=== PATIENT | female | born 1975 | race Caucasian/White ===

== ENCOUNTER 2020-06-27 09:57 | Outpatient (REF) | payer BC, SELFPAY ==
[2020-06-27 12:20] LABS: MANUAL DIFF FLAG NO
[2020-06-27 12:33] LABS: Basophils Percent Auto 0.2 % (0-2); Eosinophils Absolute Auto 0.2 X10*3/uL (0.0-0.4); Eosinophils Percent Auto 2.7 % (0-4); Hematocrit 37.6 % (37-47); Hemoglobin 11.9 g/dl (12.0-16.0); Imm Gran Abs Auto 0.05 X10*3/uL (0.00-0.03); Imm Gran Pct Auto 0.6 % (0.0-0.4); Lymphocytes Absolute Auto 2.5 X10*3/uL (1.2-4.9); Lymphocytes Percent Auto 29.3 % (20-40); Mean Corpuscular HGB Conc 31.6 g/dl (31.0-35.0); Mean Corpuscular Hemoglobin 24.6 pg (27.0-33.0); Mean Corpuscular Volume 77.7 fL (80-98); Mean Platelet Volume 9.9 fL (9.4-12.3); Monocytes Absolute Auto 0.7 X10*3/uL (0.1-1.2); Monocytes Percent Auto 7.9 % (2-11); Neutrophils Absolute Auto 5.1 X10*3/uL (2.0-8.3); Neutrophils Percent Auto 59.3 % (45-73); Platelet Count 230 X10*3/uL (160-400); Red Blood Count 4.84 X10*6/uL (4.20-5.50); Red Cell Distribution Width 14.4 % (11.0-16.0); White Blood Count 8.6 X10*3/uL (4.8-10.8)
[2020-06-27 12:44] LABS: Alanine Aminotransferase 89 U/L (0-31); Albumin Level 4.1 g/dL (3.5-5.0); Alkaline Phosphatase 110 U/L (39-117); Anion Gap 14 (12-20); Aspartate Amino Transferase 89 U/L (5-31); Bilirubin Total 0.4 mg/dL (0.0-1.0); Blood Urea Nitrogen 13 mg/dL (9-16); Calcium 8.8 mg/dL (8.4-10.2); Carbon Dioxide 24 mmol/L (22-29); Chloride 105 mmol/L (96-108); Cholesterol 206 mg/dL; Estimated Glomerular Filt Rate > 60; Glucose Random 159 mg/dL (60-115); HDL Cholesterol 60 mg/dL; LDL Cholesterol Calculated 127 mg/dl; Potassium 4.1 mmol/L (3.3-5.1); Sodium 139 mmol/L (135-145); Total Protein 7.8 g/dL (6.5-8.0); Triglycerides 96 mg/dL; Uric Acid 4.3 mg/dL (2.4-5.7)
[2020-06-27 13:08] LABS: Thyroid Stimulating Hormone 0.78 uIU/mL (0.32-4.0); Vitamin D 25-OH Total 14.9 ng/mL (>30)
[2020-06-27 13:31] LABS: Folate 15.1 ng/mL (> or = 4.0); Vitamin B12 705 pg/mL (200-900)
[2020-06-27 13:51] LABS: Creatinine Urine 208.38 mg/dL; Microalbum/Creatinine Ratio Ur 12.9 ug/mg cr
== END 2020-06-27 09:58 | disposition home or self-care (01) ==
LOC: HO.LAB 09:57
PROVIDERS: Absent Provider Internal Medicine; PCP Internal Medicine; Visit Provider Dietitian, Registered
DX: E11.65 Type 2 diabetes mellitus with hyperglycemia (principal); E28.2 Polycystic ovarian syndrome; E78.00 Pure hypercholesterolemia, unspecified; Z71.3 Dietary counseling and surveillance
CPT/HCPCS: 36415; 80053; 80061; 82043; 82306; 82607; 82746; 84439; 84443; 84550; 85025; 97802

== ENCOUNTER → 2020-12-04 11:26 | Outpatient (BNVA) | payer BC, SELFPAY | PROVIDERS: PCP Internal Medicine; Visit Provider Dietitian, Registered | DX: E11.65 Type 2 diabetes mellitus with hyperglycemia (principal) | CPT/HCPCS: 97803 ==

== ENCOUNTER 2021-03-19 10:54 | Outpatient (REF) | payer BC, SELFPAY ==
[2021-03-19 12:18] LABS: Alanine Aminotransferase 41 U/L (0-31); Albumin Level 3.8 g/dL (3.5-5.0); Alkaline Phosphatase 94 U/L (39-117); Anion Gap 11 (12-20); Aspartate Amino Transferase 33 U/L (5-31); Bilirubin Total 0.4 mg/dL (0.0-1.0); Blood Urea Nitrogen 10 mg/dL (9-16); Calcium 8.7 mg/dL (8.4-10.2); Carbon Dioxide 26 mmol/L (22-29); Chloride 104 mmol/L (96-108); Cholesterol 177 mg/dL; Estimated Glomerular Filt Rate > 60; Glucose Random 115 mg/dL (60-115); HDL Cholesterol 51 mg/dL; LDL Cholesterol Calculated 102 mg/dl; Potassium 4.2 mmol/L (3.3-5.1); Sodium 137 mmol/L (135-145); Total Protein 7.3 g/dL (6.5-8.0); Triglycerides 123 mg/dL
== END 2021-03-19 10:55 | disposition home or self-care (01) ==
LOC: HO.LAB 10:54
PROVIDERS: PCP Internal Medicine; Visit Provider Internal Medicine
DX: E78.00 Pure hypercholesterolemia, unspecified (principal)
CPT/HCPCS: 36415; 80053; 80061

== ENCOUNTER 2022-06-03 09:50 | Outpatient (REF) | payer BC, SELFPAY ==
[2022-06-03 10:47] LABS: Immature Retic Fraction 30.3 % (3.0-15.9); Retic HGB Equivalent 19.9 pg (30.0-35.0); Reticulocyte Percent 1.4 % (0.5-1.8); Reticulocytes Absolute 0.069 X10*6/uL (0.026-0.095)
[2022-06-03 12:42] LABS: Alanine Aminotransferase 56 U/L (0-31); Albumin Level 3.8 g/dL (3.5-5.0); Alkaline Phosphatase 103 U/L (39-117); Anion Gap 11 (12-20); Aspartate Amino Transferase 49 U/L (5-31); Bilirubin Total 0.6 mg/dL (0.0-1.0); Blood Urea Nitrogen 10 mg/dL (9-16); Calcium 8.5 mg/dL (8.4-10.2); Carbon Dioxide 25 mmol/L (22-29); Chloride 107 mmol/L (96-108); Cholesterol 171 mg/dL; Estimated Glomerular Filt Rate > 60; Glucose Random 125 mg/dL (60-115); HDL Cholesterol 48 mg/dL; Iron 19 mcg/dL (30-160); LDL Cholesterol Calculated 105 mg/dl; Percent Iron Saturation 4 % (15-50); Potassium 4.4 mmol/L (3.3-5.1); Sodium 139 mmol/L (135-145); Total Iron Binding Capacity 438 mcg/dL (228-428); Total Protein 7.8 g/dL (6.5-8.0); Triglycerides 92 mg/dL; Unsaturated Iron Binding 419 ug/dL
[2022-06-03 12:52] LABS: Creatinine Urine 239.04 mg/dL
[2022-06-03 12:57] LABS: Ferritin 11 ng/mL (10-250); Folate 11.8 ng/mL (> or = 4.0); Free T4 (Free Thyroxine) 1.03 ng/dL (0.71-1.85); Thyroid Stimulating Hormone 1.58 uIU/mL (0.32-4.0); Vitamin B12 562 pg/mL (200-900); Vitamin D 25-OH Total 21.2 ng/mL (>30)
[2022-06-03 15:38] LABS: Microalbum/Creatinine Ratio Ur 8.3 ug/mg cr
== END 2022-06-03 09:51 | disposition home or self-care (01) ==
LOC: HO.LAB 09:50
PROVIDERS: PCP Internal Medicine; Visit Provider Internal Medicine
DX: E11.65 Type 2 diabetes mellitus with hyperglycemia (principal); D64.9 Anemia, unspecified; E78.00 Pure hypercholesterolemia, unspecified; Z02.0 Encounter for examination for admission to educational institution; E55.9 Vitamin D deficiency, unspecified
CPT/HCPCS: 36415; 80053; 80061; 82043; 82306; 82607; 82728; 82746; 83540; 84439; 84443; 85045; 86762; 86765

== ENCOUNTER 2022-12-25 11:01 | Outpatient (AMB) | payer BC, SELFPAY ==
--- NOTE | 2022-12-25 11:04 | A.OFFPC_ITS ---
Vital Signs 12/25/22 11:05 Height 5 ft 2.5 in Weight 183 lb BMI 32.9 BP 130/82 Blood Pressure Location Lt brachial Position Sitting Pulse 82 Pulse Source Pulse Oximeter Temp Source Skin Pulse Oximetry (%) 97 Oxygen Delivery Method Room Air Intake Visit Reasons: Physical exam Intake Note: Patient is here today for a physical. Allergies No Known Allergies Allergy (Verified 12/25/22 11:21) Medication List - Last Reconciled 12/25/22 by GOMEZ Dave flash glucose scanning reader (FreeStyle Aníbal 14 Day [place]) As directed flash glucose sensor (FreeStyle Aníbal 14 Day Sensor kit) As directed metronidazole 0.75% 1 appl topical DAILY multivitamin 1 tab PO DAILY Tobacco use date assessed: 12/25/22 Dental Screening Dental Screen Date: 12/25/22 Did you have a dental visit in the last 12 months?: Yes Did you have a dental problem in the last 6 months where you did not have access to dental care?: No Was dental information given to patient?: Patient has dentist HPI Physical exam HPI Details Patient is a 47-year-old female who presents today for physical exam. Patient of Dr. Oliveira. Medical history significant for diabetes type 2-patient reports that she stopped all of her diabetes medications 2 months ago due to developing cramps in her right leg - patient reports following low-carbohydrate diet-she reports blood sugars in the morning 66-105 and after meals 120 -130, although she still continues with mild cramping in right leg. Patient also has PCOS-reports increased facial hair growth-would like to be seen by endocrinology, hypercholesterolemia, fatty liver. Patient also reports varicose veins on her legs would like to be seen by vascular provider. Today we di scussed patient's need for mammogram and colon cancer screening. Patient will have diabetic eye exam. Dental exam up-to-date. Pap smear normal 2021 with [facility] [employer] Interpreting per pt. Patient denies shortness of breath or chest pain. [facility] [place] Medical History (Updated 12/25/22 @ 11:55 by OGMEZ Dave) Annual physical exam Mother currently breast-feeding Tinea pedis Impacted cerumen of right ear Cervical cancer screening Fatty liver Hypercholesterolemia PCOS (polycystic ovarian syndrome) Type 2 diabetes mellitus with hyperglycemia Surgical History History of section Epidermoid cyst of skin of chest Closed right ankle fracture Hx of cholecystectomy Family History Paternal Grandmother Oral cancer Maternal Grandmother Cervical cancer Social History Housing: House Alcohol intake: current Alcohol intake frequency: a few times a month Patient Tobacco Use Status: Never used Tobacco e-Cigarette/Vaping Use: Never Used Second Hand Smoke Exposure: No Current occupational status: employed Cognitive needs: No Hearing needs: No Vision needs: No Questionnaire PHQ-9 Over the last 2 weeks, how often have you been bothered by any of the following problems? 1. Little interest or pleasure in doing things: not at all 2. Feeling down, depressed, or hopeless: not at all 3. Trouble falling or staying asleep, or sleeping too much: not at all 4. Feeling tired or having little energy: not at all 5. Poor appetite or overeating: not at all 6. Feeling bad about yourself - or that you are a failure or have let yourself or your family down: not at all 7. Trouble concentrating on things, such as reading the newspaper or watching television: not at all 8. Moving or speaking so slowly that other people could have noticed. Or the opposite - being so fidgety or restless that you have been moving around a lot more than usual: not at all 9. Thoughts that you would be better off or of hurting yourself in some way: not at all Total score: 0 Depression Screening Interpretation: Negative 47219 - PHQ-9 Billing: Yes Source: Developed by Drs. Abe Irving, Jess Molina, Jayme Peterson and colleagues, with an educational mynor from [employer]. Thrive Questionnaire Date Thrive assessed: 12/25/22 I am a: Patient What is your living situation today?: I have a steady place to live Within the past 12 months, did the food you bought not last and you didn't have the money to get more?: Never true Within the past 12 months, did you worry whether your food would run out before you got money to buy more?: Never true Do you have trouble paying for medicines?: No Do you have trouble getting transportation to medical appointments?: No Do you have trouble paying your heating and electricity bill?: No Do you have trouble taking care of your child, family member or friend?: No Do you have trouble with day-to-day activities such as bathing, preparing meals, shopping, managing finances, etc.?: No Are you currently unemployed and looking for a job?: No Are you interested in more education?: No Currently or been in a relationship where the following occur: no concerns reported AUDIT C Alcohol Use Questionnaire (AUDIT-C) 1. How often do you have a drink containing alcohol?: Monthly or less 2. How many drinks containing alcohol do you have on a typical day when you are drinking?: 1 or 2 3. How often do you have six or more drinks on one occasion?: Never Total Score: 1 Score Reviewed/Action Taken: No MUKESH-7 AMB Questionnaire MUKESH-7 Date MUKESH - 7 assessed: 12/25/22 Feeling nervous, anxious, or on edge: 0 = Not at all Not being able to stop or control worryin = Not at all Worrying too much about different things: 0 = Not at all Trouble relaxin = Not at all Being so restless that it is hard to sit still: 0 = Not at all Becoming easily annoyed or irritable: 0 = Not at all Feeling afraid as if something awful might happen: 0 = Not at all Total MUKESH-7 score (0-4 normal; 5-9 mild; 10-14 moderate; 15-21 severe): 0 Source: Developed by Drs. Abe Irving, Jess Molina, Jayme Peterson and colleagues, with an educational mynor from [employer]. MUKESH-7 Assessment Billing MUKESH-7 Assessment Tool: MUKESH-7 Assessment 65594 Review of Systems Const Denies body aches, Denies chills, Denies fever(s) and Denies headache(s) Eyes Denies change in vision ENT Denies dizziness, Denies otalgia, Denies headache(s), Denies nasal discharge, Denies sinus pain and Denies sore throat Card Denies chest pain, Denies edema, Denies lightheadedness and Denies dyspnea Resp Denies cough, Denies dyspnea and Denies wheezing GI Denies abdominal pain, Denies constipation, Denies diarrhea, Denies nausea and Denies vomiting Denies dysuria Musc Denies myalgias Skin/Breast Reports as per HPI and Denies rash Neuro Denies dizziness and Denies headache(s) Aller/Immun Denies wheezing Physical exam (Primary Care) Vital Signs: Last Vital Signs Pulse 82 12/25/22 11:05 BP 130/82 12/25/22 11:05 Pulse Ox 97 12/25/22 11:05 Oxygen Delivery Method Room Air 12/25/22 11:05 BMI result Body Mass Index 32.9 Tobacco/Smoking Status: Tobacco use Status Tobacco use date assessed 12/25/22 12/25/22 11:06 Patient Tobacco Use Status Never used Tobacco 12/25/22 11:06 e-Cigarette/Vaping Use Never Used 12/25/22 11:06 PHQ-9: PHQ-9 Score PHQ-9: Total score 0 12/25/22 11:14 Depression Screening Interpretation: Negative Thrive Assessment: Date of Thrive Assessment Date Thrive assessed 12/25/22 12/25/22 11:06 Currently or been in a relationship where the following occur: no concerns reported Const General: cooperative and no acute distress Orientation/consciousness: patient oriented x3 HENMT Head: Yes normocephalic and Yes atraumatic Ears: TM's normal bilaterally Face and sinus: Yes sinuses nontender Mouth: oropharynx normal and moist mucous membranes Throat: Yes posterior oropharynx normal Eyes General: appearance normal, both eyes and all related structures Pupils: Equal, round and reactive pupils present EOM: EOMs intact bilaterally Neck Neck: Yes normal visual inspection, Yes full ROM and Yes no lymphadenopathy Thyroid: Thyroid normal Resp Effort & Inspection: normal respiratory effort and able to speak in complete sentences Auscultation: clear to auscultation bilaterally, no crackles, no rales, no rhonchi and no wheezes Cardio Rate: regular rate Rhythm: regular rhythm Heart sounds: S1 normal heart sound present, S2 normal heart sound present and no murmurs GI Palpation (GI): Soft to palpation, not firm, nontender, no guarding, not rigid and no hepatosplenomegaly Auscultation: normal bowel sounds General: No CVA tenderness Back/Spine/Pelvis Back: No CVA tenderness Skin Other: Varicose veins noted to bilateral lower extremity General skin exam: no rashes or lesions noted Neuro General: patient oriented x3 Cranial nerves: Yes Equal, round and reactive pupils present Gait exam (Neuro): Normal gait present Extrem General: Yes full ROM and No edema Results AMB Hemoglobin A1c AMB Hemoglobin A1c 6.2 % Last Edit by ANDREW Washington on 12/25/22 11:25 Assessment and Plan Assessment & Plan (1) Varicose vein of leg: Code(s): I83.90 - Asymptomatic varicose veins of unspecified lower extremity Plan: Vascular surgery referral for an evaluation and treatment (2) Screening for colon cancer: Code(s): Z12.11 - Encounter for screening for malignant neoplasm of colon (3) Hypercholesterolemia: Code(s): E78.00 - Pure hypercholesterolemia, unspecified Plan: Continue low-cholesterol diet and weight loss (4) PCOS (polycystic ovarian syndrome): Code(s): E28.2 - Polycystic ovarian syndrome Plan: Endocrinology referral for an evaluation and treatment (5) Type 2 diabetes mellitus with hyperglycemia: Comment: [facility] 02/2022 Code(s): E11.65 - Type 2 diabetes mellitus with hyperglycemia Plan: A1c 6.2 today which is acceptable, goal less than 6.5-patient stopped all of her diabetes medications 2 months ago and not interested in restarting them at this time Continue low-carbohydrate diet and weight loss Patient will be having diabetic eye exam Continue to monitor (6) Annual physical exam: Code(s): Z00.00 - Encounter for general adult medical examination without abnormal findings Plan: Repeat in 1 year (7) Screening for breast cancer: Code(s): Z12.39 - Encounter for other screening for malignant neoplasm of breast (8) Obesity (BMI 30.0-34.9): Code(s): E66.9 - Obesity, unspecified Plan: Healthy food choices and exercise as tolerated Plan Follow-up with PCP in 4 months or sooner as needed Orders: Orders Vitamin D 25-OH Total Today E11.65 - Type 2 diabetes mellitus with hyperglycemia TSH reflex Free T4 Today E11.65 - Type 2 diabetes mellitus with hyperglycemia Lipid Panel Today E78.00 - Pure hypercholesterolemia, unspecified Complete Blood Count Auto Diff Today E11.65 - Type 2 diabetes mellitus with hyperglycemia AMB Hemoglobin A1c Today E11.65 - Type 2 diabetes mellitus with hyperglycemia MM tomosynthesis screening BI Today Z12.31 - Encounter for screening mammogram for malignant neoplasm of breast Vitamin B12 and Folate Today E11.65 - Type 2 diabetes mellitus with hyperglycemia Comprehensive [place]. Panel Fast Today E11.65 - Type 2 diabetes mellitus with hyperglycemia Referrals Endocrinology Referral E28.2 - Polycystic ovarian syndrome Vascular Surgery Referral I83.90 - Asymptomatic varicose veins of unspecified lower extremity Gastroenterology Referral Z12.11 - Encounter for screening for malignant neoplasm of colon Coding Level of Care Code Est Pt Prev Care 40-64y(26924) Diagnoses Varicose vein of leg I83.90 Screening for colon cancer Z12.11 Hypercholesterolemia E78.00 PCOS (polycystic ovarian syndrome) E28.2 Type 2 diabetes mellitus with hyperglycemia E11.65 Annual physical exam Z00.00 Screening for breast cancer Z12.39 Obesity (BMI 30.0-34.9) E66.9 Additional Codes MUKESH-7 Assessment Billing - MUKESH-7 Assessment Tool: MUKESH-7 Assessment 47665 ([id number])
[2022-12-25 11:05] VITALS: BP 130/82; PULSE 82; O2SAT 97; BMI 32.9
== END 2022-12-25 14:43 | disposition home or self-care (01) ==
PROVIDERS: PCP Internal Medicine; Visit Provider Nurse Practitioner Family
DX: Z00.00 Encounter for general adult medical examination without abnormal findings (principal); E11.65 Type 2 diabetes mellitus with hyperglycemia; E28.2 Polycystic ovarian syndrome; E78.00 Pure hypercholesterolemia, unspecified; I83.90 Asymptomatic varicose veins of unspecified lower extremity; E66.9 Obesity, unspecified
CPT/HCPCS: 83036; 99396

== ENCOUNTER 2022-12-31 10:27 | Outpatient (REF) | payer BC, SELFPAY ==
--- NOTE | ~2022-12-31 | MM_ITS ---
EXAMINATION: MM SCREENING DIGITAL BREAST TOMOSYNTHESIS, BILATERAL CLINICAL INFORMATION: Screening. Asymptomatic. COMPARISON: Mammography: There are no prior mammograms for comparison. TECHNIQUE: Digital breast tomosynthesis is performed in both the craniocaudal and mediolateral oblique views along with computer-aided detection (CAD). Synthesized 2D images are generated from the tomosynthesis. FINDINGS: There are scattered areas of fibroglandular density (ACR BI-RADS breast composition Category b). There are no significant masses, abnormal calcifications, or other abnormalities. MM/MM tomosynthesis screening BI IMPRESSION: No mammographic evidence of malignancy. ASSESSMENT: BI-RADS BI-RADS 1 - Negative RECOMMENDATION: Routine annual mammography screening. 1 year F/U This examination should not preclude the clinical evaluation of a suspicious palpable abnormality. This patient's information was entered into a reminder system with a target due date for their next mammogram.
== END 2022-12-31 10:28 | disposition home or self-care (01) ==
LOC: HO.MAMMO 10:27
PROVIDERS: PCP Internal Medicine; Visit Provider Nurse Practitioner Family
DX: Z12.31 Encounter for screening mammogram for malignant neoplasm of breast (principal)
CPT/HCPCS: 77063; 77067

== ENCOUNTER → 2022-12-31 10:30 | Outpatient (BNV) | payer BC, SELFPAY | PROVIDERS: PCP Internal Medicine; Visit Provider Radiology Diagnostic Radiology | DX: Z12.31 Encounter for screening mammogram for malignant neoplasm of breast (principal) | CPT/HCPCS: 77063; 77067 ==

== ENCOUNTER 2023-03-02 12:04 | Outpatient (AMB) | payer BC, SELFPAY ==
--- NOTE | 2023-03-02 12:18 | MHC.OFFVIS ---
Intake Vital Signs 03/02/23 12:20 Height 5 ft 2 in Weight 174 lb BMI 31.8 BP 134/77 Blood Pressure Location Lt brachial Position Sitting Pulse 93 Intake Visit Reasons: colonoscopy Intake Note: Patient new consult for 1st pre colonoscopy screening. Patient cc: contipation with some blood due hemorrhoids on ma doff. District Superintendent Required: No Accompanied by: Spouse Allergies No Known Allergies Allergy (Verified 03/02/23 12:19) Medication List - Last Reconciled 03/02/23 by Aydee March PA-C bisacodyl (Dulcolax (bisacodyl)) 20 mg (4 x 5 mg) PO ONCE 1 day flash glucose scanning reader ([employer] Aníbal 14 Day [place]) As directed flash glucose sensor (FreeStyle Aníbal 14 Day Sensor kit) As directed metronidazole 0.75% 1 appl topical DAILY multivitamin 1 tab PO DAILY polyethylene glycol 3350 (Miralax) 238 grams PO ONCE PRN 1 day HPI HPI Comments History of Present Illness Details A 47 y/o female referred for screening colonoscopy- she is constipated-, this is typical for her- increases fiber- appetite is good No respiratory or cardiac issues Family history GI cancer No nausea, vomiting, hematemesis, hematochezia fever chills present [facility] Medical History Annual physical exam Mother currently breast-feeding Tinea pedis Impacted cerumen of right ear Cervical cancer screening Fatty liver Hypercholesterolemia PCOS (polycystic ovarian syndrome) Type 2 diabetes mellitus with hyperglycemia Surgical History History of section Epidermoid cyst of skin of chest Closed right ankle fracture Hx of cholecystectomy Family History Paternal Grandmother Oral cancer Maternal Grandmother Cervical cancer Social History Housing: House Alcohol intake: current Alcohol intake frequency: a few times a month Patient Tobacco Use Status: Never used Tobacco e-Cigarette/Vaping Use: Never Used Second Hand Smoke Exposure: No Current occupational status: employed Cognitive needs: No Hearing needs: No Vision needs: No Review of Systems Const All systems reviewed & are unremarkable except as noted in HPI and below Card Denies chest pain and Denies dyspnea Resp Denies dyspnea Physical Exam Vital Signs: Last Vital Signs Pulse 93 03/02/23 12:20 BP 134/77 03/02/23 12:20 BMI result Body Mass Index 31.8 Const General: cooperative, healthy appearing, comfortable and no acute distress Orientation/consciousness: patient oriented x3 Limitations: no limitations Eyes Sclerae: sclerae normal Resp Effort & Inspection: normal respiratory effort and able to speak in complete sentences Auscultation: clear to auscultation bilaterally, no rales, no rhonchi and no wheezes Cardio Rate: regular rate Rhythm: regular rhythm Heart sounds: S1 normal heart sound present and S2 normal heart sound present GI Palpation (GI): Soft to palpation and nontender Auscultation: normal bowel sounds Skin General skin exam: no rashes or lesions noted Neuro General: patient oriented x3 Extrem General: Yes full ROM Psych Appearance: grossly normal and well kempt Mental Status: mental status grossly normal Speech and movement: Normal speech and movement present Affect: normal affect Attitude: cooperative Thought process: Normal thought process present Thought content: Normal thought content present Insight: Good insight present (Psych) Judgement: Good judgement present (Psych) Assessment & Plan Assessment & Plan (1) Constipation: Code(s): K59.00 - Constipation, unspecified Plan: maintain high-fiber diet (2) Screening for colon cancer: Comment: Index screening colonoscopy Discussed procedure, rare risks, need for escorted Code(s): Z12.11 - Encounter for screening for malignant neoplasm of colon Plan Index screening colonoscopy MiraLax Gatorade prep Orders: Orders Colonoscopy - GI Use Only 03/02/23 Z12.11 - Encounter for screening for malignant neoplasm of colon Medications: New polyethylene glycol 3350 (Miralax) Take as directed by mouth the day before your procedure. 238 grams PO ONCE PRN 238 grams 0RF laxative effect 1 day bisacodyl (Dulcolax (bisacodyl)) Day before procedure, prep day Take 4 tablets by mouth upon awakening followed by large glass of water 20 mg (4 x 5 mg) PO ONCE 4 tabs 0RF colonoscopy prep 1 day Z12.11 - Encounter for screening for malignant neoplasm of colon Patient Instructions: index screening colonoscopy MG prep- reviewed, literature given Maintain high-fiber diet for constipation Call with questions or concerns Coding Level of Care Code New Pt Level 3 (73940) Diagnoses Constipation K59.00 Screening for colon cancer Z12.11 Time Spent (min) 30
[2023-03-02 12:20] VITALS: BP 134/77; PULSE 93; BMI 31.8
== END 2023-03-02 13:34 | disposition home or self-care (01) ==
PROVIDERS: PCP Internal Medicine; Visit Provider Physician Assistant
DX: K59.00 Constipation, unspecified (principal); Z12.11 Encounter for screening for malignant neoplasm of colon
CPT/HCPCS: 99203

== ENCOUNTER → 2023-03-02 12:04 | Outpatient (BNVA) | payer BC, SELFPAY | PROVIDERS: PCP Internal Medicine; Visit Provider Physician Assistant ==

== ENCOUNTER 2023-03-18 11:23 | Outpatient (AMB) | payer BC, SELFPAY ==
--- NOTE | 2023-03-18 11:24 | A.OFFVIS_ITS ---
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 Complaints include pain over varicosities, swelling of lower extremities, cramping, fatigue, and heaviness of the lower extremities. 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 It is noted more so in left leg. Noted more so after the of a child in her late 30s and her last was at the age of 43 Patient denies any previous venous surgery or injections. Patient denies any history of DVT/ PE. Family history of a DVT with grandmother Patient denies any history of phlebitis. Trial of compression includes - [id number] They now present for vascular evaluation regarding their varicose veins. [facility] Medical History Annual physical exam Mother currently breast-feeding Tinea pedis Impacted cerumen of right ear Cervical cancer screening Fatty liver Hypercholesterolemia PCOS (polycystic ovarian syndrome) Type 2 diabetes mellitus with hyperglycemia Surgical History History of section Epidermoid cyst of skin of chest Closed right ankle fracture Hx of cholecystectomy Family History Paternal Grandmother Oral cancer Maternal Grandmother Cervical cancer Social History Housing: House Alcohol intake: current Alcohol intake frequency: a few times a month Patient Tobacco Use Status: Never used Tobacco e-Cigarette/Vaping Use: Never Used Second Hand Smoke Exposure: No Current occupational status: employed Cognitive needs: No Hearing needs: No Vision needs: No Review of Systems Const Reports as per HPI ENT Reports no additional complaints Card Denies chest pain, Denies chest pain at rest and Denies chest pain with activity Resp Denies chest congestion and Denies cough GI Reports no additional complaints Musc Details: pain over varicosities, aching of lower extremities, swelling, cramping, heaviness and tiredness, itching Denies abnormal gait Skin/Breast Reports pruritus and Denies wounds Neuro Reports no additional complaints and Denies abnormal gait Psych Denies no additional complaints Physical Exam Vital Signs: BMI result Body Mass Index 32.2 Const General: cooperative, healthy appearing and comfortable Orientation/consciousness: oriented to person, oriented to place and oriented to time Neck Carotids: no bruits Chest Chest palpation & inspection: normal inspection of the chest and normal palpation of entire chest wall Resp Effort & Inspection: normal respiratory effort and able to speak in complete sentences Cardio Rate: regular rate Heart sounds: S1 normal heart sound present and S2 normal heart sound present Peripheral pulses: Peripheral pulses 2+ throughout GI Inspection: Yes normal to inspection Skin Other: +2 edema, large rope-like varicosities greater than 4 mm left thigh and calf CEAP Classification C4 - skin color changes Ep - Etiology Primary As - superficial veins P - reflux General skin exam: dry skin Neuro General: oriented to person, oriented to place and oriented to time Extrem Right lower extremity: full ROM, normal capillary refill and edema Left lower extremity: full ROM, normal capillary refill and edema Psych Mental Status: mental status grossly normal Assessment & Plan Assessment & Plan (1) Varicose veins of left lower extremity with inflammation: Code(s): I83.12 - Varicose veins of left lower extremity with inflammation Plan: In short, the patient has evidence of venous insufficiency. I have discussed the pathophysiology with the patient. In addition I have provided informational material regarding venous disease to the patient. We have discussed conservative measures including compression, elevation, and exercise. I have also provided a handout regarding appropriate use of compression stockings and where to purchase good compression stockings as well. I have taken the liberty of ordering venous insufficiency testing with the patient. They will follow up with me after testing. The patient had an opportunity to ask questions regarding the treatment plan. All questions were answered. Imaging studies, laboratory studies and physical exam results were discussed and reviewed in detail. No major barriers to understanding were identified. The patient expressed understanding and agreement with the above treatment plan. The patient is aware they should contact our office by phone for worsening of the current condition or the appearance of new symptoms. Thank you for allowing me to participate in the vascular care of this patient. If you have any questions or concerns regarding the treatment for the above condition please do not hesitate to contact me. The office telephone contact is [phone]. This note is constructed using voice recognition software. While every effort has been made to ensure accuracy, railroad accountant errors may have been included. Thank you for allowing me to participate in the care of your patient. Yours sincerely, Jose Bowling MD, FACS, R.P.V.I. Orders: Orders US venous duplex LE BI 1 Week I83.12 - Varicose veins of left lower extremity with inflammation Coding Level of Care Code New Pt Level 4 (52353) Diagnoses Varicose veins of left lower extremity with inflammation I83.12
[2023-03-18 11:28] VITALS: BMI 32.2
== END 2023-03-18 11:41 | disposition home or self-care (01) ==
PROVIDERS: PCP Internal Medicine; Visit Provider Surgery Vascular Surgery
DX: I83.12 Varicose veins of left lower extremity with inflammation (principal)
CPT/HCPCS: 99203

== ENCOUNTER → 2023-03-18 11:23 | Outpatient (BNVA) | payer BC, SELFPAY | PROVIDERS: PCP Internal Medicine; Visit Provider Surgery Vascular Surgery ==

== ENCOUNTER 2023-03-25 08:36 | Outpatient (REF) | payer BC, SELFPAY ==
--- NOTE | ~2023-03-25 | US_ITS ---
EXAMINATION: US LOWER EXTREMITY VENOUS (REFLUX EXAM), BILATERAL CLINICAL INDICATION: Varicose veins of the left lower extremity COMPARISON: None. TECHNIQUE: Color flow triplex imaging and compression Doppler was performed to evaluate both the deep and the superficial systems bilaterally. To evaluate the superficial system, the examination was performed in the upright position. Color-flow Doppler ultrasound and compression ultrasound were utilized. In addition, maneuvers were utilized to demonstrate reflux. FINDINGS: 1. DEEP VENOUS ULTRASOUND OF THE RIGHT LOWER EXTREMITY: Common Femoral Vein: Compressible, normal respiratory variation and augmented flow. Femoral Vein: Compressible, normal color flow and augmentation. Popliteal Vein: Compressible, normal augmentation. Deep Reflux: There is 1936 ms of reflux in the right common femoral vein There is no evidence of a Lehman's cyst. Incidental note of a lymph node in the right groin measuring 3 x 0.6 x 0.7 cm. 2. SUPERFICIAL ULTRASOUND WITH DOPPLER OF RIGHT LOWER EXTREMITY: GREAT SAPHENOUS VEIN: Saphenofemoral Junction: 1.1 cm; Reflux: Greater than 2460 ms Proximal Thigh: 0.7 cm; Reflux: Greater than 2476 ms Mid Thigh: 0.6 cm; Reflux: Greater than 2356 ms Above Knee: 1.2 cm; Reflux: Greater than 2620 ms At Knee: 0.7 cm; Reflux: 1588 ms Below Knee: 0.2 cm; Reflux: 0 ms Mid Calf: 0.1 cm; Reflux: 0 ms Ankle: 0.2 cm; Reflux: Greater than 2736 ms DUPLICATED MEDIAL GREAT SAPHENOUS VEIN: Diameter: None Imaged Reflux: NA DUPLICATED LATERAL GREAT SAPHENOUS VEIN: Diameter: 0.3 cm at the SFJ, and 0.1 cm in the mid thigh Reflux: None SMALL SAPHENOUS VEIN: Proximal: 0.2 cm; Reflux: 0 ms Distal: 0.1 cm; Reflux: 0 ms VEIN OF GIACOMINI: 0.3 cm, no reflux PERFORATORS: Location: Mid small saphenous vein Size: 0.3 cm Reflux: 1260 ms Location: Proximal calf Size: 0.2 cm Reflux: 0 ms Location: Mid calf Size: 0.4 cm Reflux: 1728 VARICOSITIES: Location: Small saphenous vein mid Size: 0.4 cm Reflux: 1556 ms Location: At knee Size: 0.3 cm Reflux: 604 ms Location: Proximal calf Size: 1 cm Reflux: 1728 ms Location: Proximal calf Size: 0.3 cm Reflux: None Location: Distal calf Size: 0.3 cm Reflux: Greater than 2704 ms 3. DEEP VENOUS ULTRASOUND OF THE LEFT LOWER EXTREMITY: Common Femoral Vein: Compressible, normal respiratory variation and augmented flow. Femoral Vein: Compressible, normal color flow and augmentation. Popliteal Vein: Compressible, normal augmentation. Deep Reflux: There is no evidence of reflux in the deep system in either the common femoral vein or the popliteal vein. There is no evidence of a Lehman's cyst. 4. SUPERFICIAL ULTRASOUND WITH DOPPLER OF LEFT LOWER EXTREMITY: GREAT SAPHENOUS VEIN: Saphenofemoral Junction: 0.8 cm; Reflux: 0 ms Proximal Thigh: 0.5 cm; Reflux: 0 ms Mid Thigh: 0.2 cm; Reflux: 744 ms Above Knee: 0.2 cm; Reflux: 0 ms At Knee: 0.1 cm; Reflux: 0 ms Below Knee: 0.1 cm; Reflux: Greater than 2704 ms Mid Calf: 0.1 cm; Reflux: 0 ms Ankle: 0.1 cm; Reflux: 0 ms DUPLICATED MEDIAL GREAT SAPHENOUS VEIN: Diameter: 0.3 cm at the SFJ, 0.2 cm in the mid thigh Reflux: None DUPLICATED LATERAL GREAT SAPHENOUS VEIN: Diameter: 0.1 cm at the SF J, 0.2 cm in the mid thigh Reflux: 2132 ms in the mid thigh SMALL SAPHENOUS VEIN: Proximal: 0.1 cm; Reflux: 0 ms Distal: 0.1 cm; Reflux: 0 ms VEIN OF GIACOMINI: None Imaged. PERFORATORS: Location: Proximal calf Size: 0.2 cm Reflux: 0 Location: Mid calf Size: 0.2 cm Reflux: 0 VARICOSITIES: Location: Off S as the mid Size: 0.6 cm Reflux: Greater than 2912 ms US/US venous duplex LE BI IMPRESSION: 1. Right: Severe reflux in the right great saphenous vein. 2. Right small saphenous vein reflux in the mid thigh and mid calf. 3. Multiple refluxing varicosities in the right lower extremity. 4. Left: Severe reflux in the left great saphenous vein below the knee and below. 5. Left small saphenous venous insufficiency in the mid thigh. 6. Varicosity with reflux arising from the left small saphenous vein.
== END 2023-03-25 08:37 | disposition home or self-care (01) ==
LOC: HO.US 08:36
PROVIDERS: PCP Internal Medicine; Visit Provider Surgery Vascular Surgery
DX: I83.12 Varicose veins of left lower extremity with inflammation (principal)
CPT/HCPCS: 93970

== ENCOUNTER 2023-04-29 09:59 | Outpatient (REF) | payer BC, SELFPAY ==
[2023-04-29 10:49] LABS: MANUAL DIFF FLAG NO
[2023-04-29 11:14] LABS: Basophils Percent Auto 0.6 % (0-2); Eosinophils Absolute Auto 0.1 X10*3/uL (0.0-0.4); Hematocrit 28.9 % (37.0-47.0); Hemoglobin 7.9 g/dl (12.0-16.0); Imm Gran Abs Auto 0.02 X10*3/uL (0.00-0.03); Imm Gran Pct Auto 0.3 % (0.0-0.4); Lymphocytes Absolute Auto 1.7 X10*3/uL (1.2-4.9); Mean Corpuscular HGB Conc 27.3 g/dl (31.0-35.0); Mean Platelet Volume 9.1 fL (9.4-12.3); Monocytes Absolute Auto 0.6 X10*3/uL (0.1-1.2); Monocytes Percent Auto 8.4 % (2-11); Neutrophils Absolute Auto 4.2 x10*3/uL (2.0-8.3); Neutrophils Percent Auto 62.7 % (45-73); Platelet Count 288 X10*3/uL (160-400); Red Blood Count 4.65 X10*6/uL (4.20-5.50); Red Cell Distribution Width 20.8 % (11.0-16.0); White Blood Count 6.7 X10*3/uL (4.8-10.8)
[2023-04-29 11:16] LABS: Mean Corpuscular Volume 62.2 fL (80.0-98.0)
[2023-04-29 11:45] LABS: Alanine Aminotransferase 21 U/L (0-31); Albumin Level 3.9 g/dL (3.5-5.0); Alkaline Phosphatase 88 U/L (39-117); Anion Gap 11 (12-20); Aspartate Amino Transferase 21 U/L (5-31); Bilirubin Total 0.5 mg/dL (0.0-1.0); Blood Urea Nitrogen 10 mg/dL (9-16); Calcium 8.6 mg/dL (8.4-10.2); Carbon Dioxide 25 mmol/L (22-29); Chloride 106 mmol/L (96-108); Cholesterol 146 mg/dL (<200); Estimated Glomerular Filt Rate > 60; Glucose Fasting 87 mg/dL (60-99); HDL Cholesterol 47 mg/dL (>40); LDL Cholesterol Calculated 82 mg/dL (<100); Potassium 3.8 mmol/L (3.3-5.1); Sodium 138 mmol/L (135-145); Total Protein 7.6 g/dL (6.5-8.0); Triglycerides 86 mg/dL (<150)
[2023-04-29 12:01] LABS: TSH reflex Free T4 0.75 uIU/mL (0.32-4.0); Vitamin D 25-OH Total 11.7 ng/mL (>30)
[2023-04-29 12:12] LABS: Folate 9.1 ng/mL (> or = 4.0); Vitamin B12 526 pg/mL (200-900)
== END 2023-04-29 10:00 | disposition home or self-care (01) ==
LOC: HO.LAB 09:59
PROVIDERS: PCP Internal Medicine; Visit Provider Nurse Practitioner Family
DX: E11.65 Type 2 diabetes mellitus with hyperglycemia (principal); E78.00 Pure hypercholesterolemia, unspecified; I83.11 Varicose veins of right lower extremity with inflammation; I83.811 Varicose veins of right lower extremity with pain
CPT/HCPCS: 36415; 80053; 80061; 82306; 82607; 82746; 84443; 85025

== ENCOUNTER 2023-04-29 09:59 | Outpatient (AMB) | payer BC, SELFPAY ==
--- NOTE | 2023-04-29 09:59 | A.OFFVIS_ITS ---
Intake Vital Signs 04/29/23 10:00 Height 5 ft 2 in Weight 176 lb BMI 32.2 Intake Visit Reasons: Follow up US Intake Note: follow up s/p US 03/25/23, bilateral LE VV w/ pain, burning,swelling, discoloration and cramping. 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 She states that Right LE is more painful and left LE has more large rope like VV. Pt states she has tried compression stocking when she is on her feet working. Accompanied by: Spouse Allergies No Known Allergies Allergy (Verified 04/29/23 10:06) HPI Follow up US HPI Details Very pleasant 48-year-old female presents for follow-up regarding venous insufficiency. 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 She reports bilateral swelling and pain especially while working as a nurse for long hours while she is standing. She has pain over her varicosities. She now presents for follow-up with venous insufficiency testing. [facility] Medical History Annual physical exam Mother currently breast-feeding Tinea pedis Impacted cerumen of right ear Cervical cancer screening Fatty liver Hypercholesterolemia PCOS (polycystic ovarian syndrome) Type 2 diabetes mellitus with hyperglycemia Surgical History History of section Epidermoid cyst of skin of chest Closed right ankle fracture Hx of cholecystectomy Family History Paternal Grandmother Oral cancer Maternal Grandmother Cervical cancer Social History Housing: House Alcohol intake: current Alcohol intake frequency: a few times a month Patient Tobacco Use Status: Never used Tobacco e-Cigarette/Vaping Use: Never Used Second Hand Smoke Exposure: No Current occupational status: employed Cognitive needs: No Hearing needs: No Vision needs: No Review of Systems Const Reports as per HPI ENT Reports no additional complaints Card Denies chest pain, Denies chest pain at rest and Denies chest pain with activity Resp Denies chest congestion and Denies cough GI Reports no additional complaints Musc Details: pain over varicosities, aching of lower extremities, swelling, cramping, heaviness and tiredness, itching Denies abnormal gait Skin/Breast Reports pruritus and Denies wounds Neuro Reports no additional complaints and Denies abnormal gait Psych Denies no additional complaints Physical Exam Vital Signs: BMI result Body Mass Index 32.2 Const General: cooperative, healthy appearing and comfortable Orientation/consciousness: oriented to person, oriented to place and oriented to time Neck Carotids: no bruits Chest Chest palpation & inspection: normal inspection of the chest and normal palpation of entire chest wall Resp Effort & Inspection: normal respiratory effort and able to speak in complete sentences Cardio Rate: regular rate Heart sounds: S1 normal heart sound present and S2 normal heart sound present Peripheral pulses: Peripheral pulses 2+ throughout GI Inspection: Yes normal to inspection Skin Other: +2 edema, large rope-like varicosities greater than 4 mm bilateral calf CEAP Classification C4 - skin color changes Ep - Etiology Primary As - superficial veins P - reflux General skin exam: dry skin Neuro General: oriented to person, oriented to place and oriented to time Extrem Right lower extremity: full ROM, normal capillary refill and edema Left lower extremity: full ROM, normal capillary refill and edema Psych Mental Status: mental status grossly normal Results Reviewed Results Reviewed: Brief summary of venous insufficiency testing is as follows: right great saphenous vein: Positive right small saphenous vein: negative right accessory vein: none present left great saphenous vein: negative left small saphenous vein: negative left accessory vein: none present Please note there is no evidence of any venous aneurysms or significant tortuosity Assessment & Plan Assessment & Plan (1) Varicose veins of right lower extremity with inflammation: Code(s): I83.11 - Varicose veins of right lower extremity with inflammation Plan: This patient has varicose veins with inflammation. They continue to be a source of discomfort for the patient. The patient has tried conservative treatment with compression, leg elevation and exercise program for over 3 months time. They have been compliant with all treatment. This has provided minimal relief for the patient. I do not anticipate this course of treatment will alter the underlying etiology. The patient has been scheduled for lower extremity venous treatment inclusive of --- right great saphenous vein radiofrequency ablation. Risks, benefits, and complications of this procedure has been disc ussed in detail with the patient including but not limited to bleeding, infection, and the development of a DVT. The patient has demonstrated a clear understanding and has consented. We will schedule the patient as soon as possible. Thank you for allowing us to participate in this patient's care. If there are any questions or concerns please do not hesitate to contact us. Coding Level of Care Code Est Pt Level 4 (40893) Diagnoses Varicose veins of right lower extremity with inflammation I83.11
[2023-04-29 10:00] VITALS: BMI 32.2
== END 2023-04-29 10:31 | disposition home or self-care (01) ==
PROVIDERS: PCP Internal Medicine; Visit Provider Surgery Vascular Surgery
DX: I83.11 Varicose veins of right lower extremity with inflammation (principal)
CPT/HCPCS: 99214

== ENCOUNTER 2023-04-30 09:25 | Outpatient (AMB) | payer BC, SELFPAY ==
[2023-04-30 09:14] VITALS: BP 122/70; PULSE 83; O2SAT 100; BMI 30.9
--- NOTE | 2023-04-30 09:29 | MHC.PC.OV ---
Vital Signs 04/30/23 09:14 Height 5 ft 2 in Weight 169 lb 0.4 oz BMI 30.9 BP 122/70 Blood Pressure Location Lt brachial Position Sitting Pulse 83 Pulse Source Pulse Oximeter Pulse Oximetry (%) 100 Oxygen Delivery Method Room Air Intake Visit Reasons: DM Allergies No Known Allergies Allergy (Verified 04/30/23 09:14) Tobacco use date assessed: 04/30/23 Dental Screening Dental Screen Date: 04/30/23 Did you have a dental visit in the last 12 months?: Yes Did you have a dental problem in the last 6 months where you did not have access to dental care?: No Was dental information given to patient?: Patient has dentist HPI DM HPI Details 48-year-old obese female with controlled diabetes mellitus hypercholesterolemia fatty liver and anemia coming in for follow-up last seen in March 2022.. Patient has been following up with vascular surgeon. For the peripheral vascular disease/venous insufficiency patient is going to have right great saphenous vein radiofrequency ablation patient also has met with Gastroenterology for colonoscopy screening. Called patient yesterday due to blood work recently done showing anemia LMPLMP 1st week 10 days PFSH Medical History Annual physical exam Mother currently breast-feeding Tinea pedis Impacted cerumen of right ear Cervical cancer screening Fatty liver Hypercholesterolemia PCOS (polycystic ovarian syndrome) Type 2 diabetes mellitus with hyperglycemia Surgical History History of section Epidermoid cyst of skin of chest Closed right ankle fracture Hx of cholecystectomy Family History Paternal Grandmother Oral cancer Maternal Grandmother Cervical cancer Social History Housing: House Alcohol intake: current Alcohol intake frequency: a few times a month Patient Tobacco Use Status: Never used Tobacco e-Cigarette/Vaping Use: Never Used Second Hand Smoke Exposure: No Current occupational status: employed Cognitive needs: No Hearing needs: No Vision needs: No Questionnaire PHQ-9 Over the last 2 weeks, how often have you been bothered by any of the following problems? 1. Little interest or pleasure in doing things: not at all 2. Feeling down, depressed, or hopeless: not at all 3. Trouble falling or staying asleep, or sleeping too much: not at all 4. Feeling tired or having little energy: not at all 5. Poor appetite or overeating: not at all 6. Feeling bad about yourself - or that you are a failure or have let yourself or your family down: not at all 7. Trouble concentrating on things, such as reading the newspaper or watching television: not at all 8. Moving or speaking so slowly that other people could have noticed. Or the opposite - being so fidgety or restless that you have been moving around a lot more than usual: not at all 9. Thoughts that you would be better off or of hurting yourself in some way: not at all Total score: 0 Depression Screening Interpretation: Negative Depression Screening Done: Yes 10281 - PHQ-9 Billing: Yes Source: Developed by Drs. Abe Irving, Jess Molina, Jayme Peterson and colleagues, with an educational mynor from [employer]. Thrive Questionnaire Date Thrive assessed: 12/25/22 AUDIT C Alcohol Use Questionnaire (AUDIT-C) 1. How often do you have a drink containing alcohol?: Never 3. How often do you have six or more drinks on one occasion?: Never Total Score: 0 MUKESH-7 AMB Questionnaire MUKESH-7 Date MUKESH - 7 assessed: 04/30/23 Source: Developed by Drs. Abe Irving, Jess Molina, Jayme Peterson and colleagues, with an educational mynor from [employer]. Physical exam (Primary Care) Vital Signs: Last Vital Signs Pulse 83 04/30/23 09:14 BP 122/70 04/30/23 09:14 Pulse Ox 100 04/30/23 09:14 Oxygen Delivery Method Room Air 04/30/23 09:14 BMI result Body Mass Index 30.9 Tobacco/Smoking Status: Tobacco use Status Tobacco use date assessed 04/30/23 04/30/23 09:38 Patient Tobacco Use Status Never used Tobacco 04/30/23 09:34 e-Cigarette/Vaping Use Never Used 04/30/23 09:34 PHQ-9: PHQ-9 Score PHQ-9: Total score 0 04/30/23 09:42 Depression Screening Interpretation: Negative Thrive Assessment: Date of Thrive Assessment Date Thrive assessed 12/25/22 04/30/23 09:34 Const General: alert; No acute distress Eyes Conjunctivae: conjunctivae normal Resp Auscultation: clear to auscultation bilaterally Cardio Rate: regular rate Rhythm: regular rhythm GI Other: guaiac negative stools Inspection: Yes normal to inspection Extrem General: Yes normal to inspection and No edema Results AMB Hemoglobin A1c AMB Hemoglobin A1c 5.2 % Last Edit by ANDREW [place] on 04/30/23 09:41 Results Reviewed Results Reviewed: Laboratory Last Values Hgb A1c (Clinic) 5.2 % (4.0-6.0) 04/30/23 09:41 Assessment and Plan Assessment & Plan (1) Anemia: Code(s): D64.9 - Anemia, unspecified Plan: Discussed my concerns about anemia. Need to follow-up with iron and vitamin B12 testing. Iron and vitamin-C prescription sent in (2) Obesity (BMI 30.0-34.9): Code(s): E66.9 - Obesity, unspecified Plan: Diet and exercise noted weight loss! Congratulations! (3) Type 2 diabetes mellitus with hyperglycemia: Comment: [facility] 02/2022 Code(s): E11.65 - Type 2 diabetes mellitus with hyperglycemia Plan: Decrease the amount of carbohydrate intake, pasta, bread, rice and potatoes are all sugar and that is aside from all the sweet stuff, remember that fruits are good but they are Sweet also. Hemoglobin A1c goal of less than 6.5. Patient on diet controlled (4) Hypercholesterolemia: Code(s): E78.00 - Pure hypercholesterolemia, unspecified Plan: Avoid fried foods, chicken skin, eggs, butter margarine, pastries and meat. Be it pork or beef they have a lot of cholesterol LDL goal of less than 100 (5) Vitamin D deficiency: Code(s): E55.9 - Vitamin D deficiency, unspecified Plan: advised to take vitamin d 2000 u once a day (6) Menometrorrhagia: Code(s): N92.1 - Excessive and frequent menstruation with irregular cycle Plan: Discussed concerns about the heavy menstrual bleeding causing significant anemia and will be follow-up with gynecology. Orders: Orders AMB Hemoglobin A1c Today E11.65 - Type 2 diabetes mellitus with hyperglycemia Ferritin Today D64.9 - Anemia, unspecified Reticulocyte Count Today D64.9 - Anemia, unspecified Complete Blood Count Auto Diff Today D64.9 - Anemia, unspecified IRON PROFILE Today D64.9 - Anemia, unspecified Vitamin B12 and Folate Today D64.9 - Anemia, unspecified Medications: New ferrous sulfate (Feosol) 325 mg PO DAILY 90 tabs 2RF D64.9 - Anemia, unspecified ascorbic acid (vitamin C) 500 mg PO .QD 90 caps 1RF D64.9 - Anemia, unspecified Coding Level of Care Code Est Pt Level 4 (81467) Diagnoses Anemia D64.9 Obesity (BMI 30.0-34.9) E66.9 Type 2 diabetes mellitus with hyperglycemia E11.65 Hypercholesterolemia E78.00 Vitamin D deficiency E55.9 Menometrorrhagia N92.1
== END 2023-04-30 10:24 | disposition home or self-care (01) ==
PROVIDERS: PCP Internal Medicine; Visit Provider Internal Medicine
DX: E11.65 Type 2 diabetes mellitus with hyperglycemia (principal); D64.9 Anemia, unspecified; Z68.30 Body mass index [BMI] 30.0-30.9, adult; E66.9 Obesity, unspecified; E78.00 Pure hypercholesterolemia, unspecified; E55.9 Vitamin D deficiency, unspecified; N92.1 Excessive and frequent menstruation with irregular cycle
CPT/HCPCS: 83036; 99214

== ENCOUNTER 2023-06-04 08:35 | Outpatient (AMB) | payer BC, SELFPAY ==
--- NOTE | 2023-06-04 09:22 | MHC.OFFVIS ---
Intake Intake Visit Reasons: Right GSV RFA Allergies No Known Allergies Allergy (Verified 04/30/23 09:14) [facility] Medical History Annual physical exam Mother currently breast-feeding Tinea pedis Impacted cerumen of right ear Cervical cancer screening Fatty liver Hypercholesterolemia PCOS (polycystic ovarian syndrome) Type 2 diabetes mellitus with hyperglycemia Surgical History History of section Epidermoid cyst of skin of chest Closed right ankle fracture Hx of cholecystectomy Family History Paternal Grandmother Oral cancer Maternal Grandmother Cervical cancer Social History Housing: House Alcohol intake: current Alcohol intake frequency: a few times a month Patient Tobacco Use Status: Never used Tobacco e-Cigarette/Vaping Use: Never Used Second Hand Smoke Exposure: No Current occupational status: employed Cognitive needs: No Hearing needs: No Vision needs: No Office Procedures Vascular Office Procedure Details Details: Diagnosis: Varicose veins with inflammation of right leg Procedure: Endovenous radiofrequency ablation of the right great saphenous vein(s) of the lower extremity. Anesthesia: Local infiltration 5 cc, Tumescent 500 cc. Estimated Blood Loss: Minimal Specimen: Varicose veins The patient was transferred to the procedure suite and the insufficient saphenous vein was mapped by ultrasound and diagrammed on the overlying skin. The depth and diameter of the vein(s) to be treated was documented. The varicose tributary veins and suitable access sites were identified and mapped as well. The patient was then positioned supine on the procedure table. The affected limb was prepped and draped in the usual sterile fashion. The RF catheter was placed on the sterile field, flushed and wiped down, prepared, and connected by a sterile cable. Local anesthesia was instilled in the skin overlying the access site. A skin incision was made overlying the identified and mapped great saphenous vein entry site. The vein was accessed using ultrasound guidance and the Seldinger technique, a guide wire was introduced through the needle, which was then exchanged over the guide wire for a 6F sheath, which was secured in place. The guide wire was removed and the sheath was flushed. The RF catheter was placed into the vein through the sheath and preferentially, imaging was used to place the catheter tip just inferior to the superficial epigastric vein to preserve normal physiological flow in that vein. Additionally, it was confirmed by ultrasound guidance that the catheter tip was also placed a minimum of 1.5cm distal to the saphenofemoral junction. After the RF catheter position was verified by ultrasound, tumescent anesthesia was infiltrated, under ultrasound guidance, precisely into the perivenous compartment along the entire length of vein from the entry site to the saphenofemoral junction until a halo of fluid was noted around the vein. The patient was then placed in Trendelenburg position to further exsanguinate the superficial venous system. After RF catheter position was again confirmed with ultrasound imaging, and under direct external compression along the length of the heating element, RF energy was applied. The vein was segmentally ablated by heating a 8 cm segment and then indexing the catheter forward by 7.5 cm until the treatment length is completed. Device temperature was maintained at 120 plus or minus 5 degrees C with an initial power level of 40W dropping to below 20W for each treatment. Total vein length treated 32 cm Total cycles of RF 6. Repeat ultrasound of the saphenous vein was performed, confirming successful treatment. The catheter and sheath were withdrawn and hemostasis established with direct pressure. After assuring hemostasis, the skin incision over the saphenous vein was closed with a bandage and a compression wrap, and/ or graduated compression stocking was applied from the level of the foot to the most proximal level of the thigh. 23029 - Endovenous RF, 1st Vein All charges added?: Procedure code (CPT) selection complete Assessment & Plan Assessment & Plan (1) Varicose veins of right lower extremity with inflammation: Comment: 06/04/2023 - right great saphenous vein radiofrequency ablation Code(s): I83.11 - Varicose veins of right lower extremity with inflammation Plan: See op note Coding Level of Care Code Procedure Only Diagnoses Varicose veins of right lower extremity with inflammation I83.11 CPT Codes Details - Vascular 1: 81275 - Endovenous RF, 1st Vein ([id number])
== END 2023-06-04 09:28 | disposition home or self-care (01) ==
PROVIDERS: PCP Internal Medicine; Visit Provider Surgery Vascular Surgery
DX: I83.11 Varicose veins of right lower extremity with inflammation (principal)
CPT/HCPCS: 36475

== ENCOUNTER → 2023-06-04 08:35 | Outpatient (BNVA) | payer BC, SELFPAY | PROVIDERS: PCP Internal Medicine; Visit Provider Surgery Vascular Surgery | DX: I83.11 Varicose veins of right lower extremity with inflammation (principal) | CPT/HCPCS: 36475 ==

== ENCOUNTER 2023-06-07 12:35 | Outpatient (REF) | payer BC, SELFPAY ==
--- NOTE | ~2023-06-07 | US_ITS ---
EXAMINATION: TRIPLEX SCANNING OF RIGHT LOWER EXTREMITY; SUPERFICIAL ULTRASOUND WITH DOPPLER OF RIGHT LOWER EXTREMITY CLINICAL INFORMATION: Status post radiofrequency ablation of the right great saphenous vein COMPARISON: preprocedure studies. TECHNIQUE: Color flow triplex imaging and compression Doppler were performed as well as superficial ultrasound with Doppler. FINDINGS: RIGHT LOWER EXTREMITY DEEP VENOUS SYSTEM: Respiratory variation, normal compression and augmented flow are noted throughout the lower extremity. The visualized common femoral vein, femoral vein, profunda femoral vein, popliteal vein and the calf veins show no evidence of deep venous thrombosis. There is no evidence of Lehman's cyst. SUPERFICIAL VENOUS SYSTEM: The great saphenous vein is occluded from the access site to just before the saphenofemoral junction. There is no extension of thrombus into the deep system. US/US venous duplex LE RT IMPRESSION: 1. No evidence of DVT. 2. Excellent appearance status post ablation of the right great saphenous vein.
== END 2023-06-07 12:36 | disposition home or self-care (01) ==
LOC: HO.US 12:35
PROVIDERS: PCP Internal Medicine; Visit Provider Surgery Vascular Surgery
DX: M79.604 Pain in right leg (principal)
CPT/HCPCS: 93971

== ENCOUNTER 2023-06-15 06:24 | Day surgery (SDC) | payer BC, SELFPAY ==
--- NOTE | 2023-06-14 08:54 | HO.ANESPROP2 ---
Documented by User: Sulma Sanabria NP 06/14/23 08:55 HPI - Anesthesia Eval Consult details Narrative: 48yo F for Colonoscopy PMFSH Active Problems Active Problems: All Active Problems (Updated 06/04/23 @ 09:25 by Jose Bowling MD) Menometrorrhagia (Acute) Vitamin D deficiency (Acute) Varicose veins of right lower extremity with inflammation (Acute) Varicose veins of left lower extremity with inflammation (Acute) Obesity (BMI 30.0-34.9) (Acute) Screening for breast cancer (Acute) Annual physical exam (Acute) Varicose vein of leg (Acute) Screening for colon cancer (Acute) Fatty liver (Acute) Anemia (Acute) Onychomycosis (Acute) Constipation (Acute) Hypercholesterolemia (Acute) PCOS (polycystic ovarian syndrome) (Acute) Type 2 diabetes mellitus with hyperglycemia (Acute) Past Medical History Medical History (Updated 06/04/23 @ 09:25 by Jose Bowling MD) Mother currently breast-feeding Tinea pedis Impacted cerumen of right ear Cervical cancer screening Annual physical exam Fatty liver Hypercholesterolemia PCOS (polycystic ovarian syndrome) Type 2 diabetes mellitus with hyperglycemia Family History Family History Paternal Grandmother Oral cancer Maternal Grandmother Cervical cancer Surgical History Surgical History (Updated 06/15/23 @ 06:40 by Odalis Crabtree RN) H/O varicose vein ligation and stripping History of section Epidermoid cyst of skin of chest Closed right ankle fracture Hx of cholecystectomy Social History Social History Housing: House Alcohol intake: current Alcohol intake frequency: a few times a month Patient Tobacco Use Status: Never used Tobacco e-Cigarette/Vaping Use: Never Used Second Hand Smoke Exposure: No Use of substances other than those prescribed or required for medical reasons: No Are you DNR?: No Advance Directives: No Advance Directives Information Provided: Yes Current occupational status: employed Cognitive needs: No Hearing needs: No Vision needs: No Meds Allergies Allergy/AdvReac Type Severity Reaction Status Date / Time No Known Allergies Allergy Verified 04/30/23 09:14 Home Medications Medication Instructions Recorded Confirmed Last Taken Type multivitamin 1 tab PO DAILY 03/19/21 06/15/23 Unknown History metronidazole 0.75 % topical gel 1 appl topical DAILY 12/25/22 06/15/23 Unknown History Exam Pertinent Lab Results Pertinent Lab Results: Laboratory Tests 04/29/23 10:48 WBC 6.7 Hgb 7.9 L Hct 28.9 L Plt Count 288 Sodium 138 Potassium 3.8 Chloride 106 Carbon Dioxide 25 BUN 10 Creatinine 0.82 Assessment and Plan Assessment Anesthesia Assessment: Chart Reviewed Documented by User: Dmitry Sanabria MD 06/15/23 07:35 PMFSH Past Medical History Medical History (Updated 06/04/23 @ 09:25 by Jose Bowling MD) Mother currently breast-feeding Tinea pedis Impacted cerumen of right ear Cervical cancer screening Annual physical exam Fatty liver Hypercholesterolemia PCOS (polycystic ovarian syndrome) Type 2 diabetes mellitus with hyperglycemia Family History Family History Paternal Grandmother Oral cancer Maternal Grandmother Cervical cancer Family history of problems with anesthesia: No Surgical History Surgical History (Updated 06/15/23 @ 06:40 by Odalis Crabtree RN) H/O varicose vein ligation and stripping History of section Epidermoid cyst of skin of chest Closed right ankle fracture Hx of cholecystectomy History of Problems with Anesthesia: No Social History Social History Housing: House Alcohol intake: current Alcohol intake frequency: a few times a month Patient Tobacco Use Status: Never used Tobacco e-Cigarette/Vaping Use: Never Used Second Hand Smoke Exposure: No Use of substances other than those prescribed or required for medical reasons: No Are you DNR?: No Advance Directives: No Advance Directives Information Provided: Yes Current occupational status: employed Cognitive needs: No Hearing needs: No Vision needs: No Meds Allergies Allergy/AdvReac Type Severity Reaction Status Date / Time No Known Allergies Allergy Verified 04/30/23 09:14 Home Medications Medication Instructions Recorded Confirmed Last Taken Type multivitamin 1 tab PO DAILY 03/19/21 06/15/23 Unknown History metronidazole 0.75 % topical gel 1 appl topical DAILY 12/25/22 06/15/23 Unknown History Exam Airway Mallampati Class: II TM Dist: <=3cm Neck ROM: Full Loose/Missing/Broken Teeth: No Heart: ok Lungs: ok Assessment and Plan Assessment Anesthesia Assessment: Anesthesia Plan Discussed Final Anesthetic Review Family History of Problems with Anesthesia: No History of Problems with Anesthesia: No NPO: Yes ASA Class: II Final Preanesthetic Review: No Changes in Pt Med Stat, Meds/Allgs Chart Reviewed, Consent Obtained/Reviewed and Anes Risks/Benef Reviewed Patient Risk: Low Procedure Risk: Low Anesthetic Plan Anesthetic Plan: MAC: and Agree w/ Assess. and Plan Disposition: Standard PACU
[2023-06-15 06:47] VITALS: BP 113/70; PULSE 82; RESP 18; TEMP 36.3; O2SAT 100; BMI 31.3
[2023-06-15 06:50] LABS: UPreg QC Valid YES; Urine Pregnancy NEGATIVE (NEGATIVE)
[2023-06-15] MEDS: Lactated Ringers 1,000 ML 100 ML IVCONT (07:14)
--- NOTE | 2023-06-15 07:25 | P.HPSUR_ITS ---
Pre-Procedural Eval Section A - 24 Hr Update-Section A only Date of Service: 06/15/23 The patient is an INPATIENT: No The patient has been examined within 24 hours of the surgical procedure. The History & Physical has been completed within 30 days and I have reviewed it.: No Section B - Complete if H&P > 30 days Chief Complaint: Colon cancer screening, chronic constipation Relevant Social History: None Present Medications: see Short Stay Collaborative assessment Medical History: Significant History (Fatty liver Hypercholesterolemia PCOS (polycystic ovarian syndrome) Type 2 diabetes mellitus with hyperglycemia) History of Previous Operations: Relevant previous surgery/procedure and date(s) (History of section Epidermoid cyst of skin of chest Closed right ankle fracture Hx of cholecystectomy) Allergies: Allergies Allergy/AdvReac Type Severity Reaction Status Date / Time No Known Allergies Allergy Verified 04/30/23 09:14 Review of Systems Sugical H&P ROS: Negative: Constitution, Cardiovascular, Respiratory and Gas trointestinal Exam Surgical H&P Exam: Normal: Heart, Normal: Lungs, Normal: Extremities and Normal: Abdomen Plan Diagnosis/Plan: Unchanged I have reviewed the history and physical and performed a pertinent physical examination on my patient. No changes have occurred unless specified. Time Spent With Patient Time: Total time managing care of this patient today ____ minutes.
--- NOTE | 2023-06-15 08:17 | P.OP_ITS ---
Operative Note Operative Note Date of Service: 06/15/23 Narrative: COLONOSCOPY TILL CECUM WITH BIOPSIES Pre-op diagnosis: Colon cancer screening (1st colonoscopy), chronic constipation. Post-op diagnosis:? colon polyp, Diverticulosis, hemorrhoids Endoscopist:? Last Nick MD Anesthesia:?MAC Consent: Indications for the procedure and potential complications of bleeding, perforation, reaction to medications and missed diagnosis were discussed with the patient and informed consent was obtained. Instrument: Olympus PCF H 190 L variable stiffness pediatric colonoscope Monitoring: Vital signs and clinical assessment, intermittent blood pressure monitoring, continuous EKG monitoring, Pulse oximetry and Carbon Dioxide monitoring were done throughout the procedure. Please see anesthesia flowsheet. Colon withdrawl time was 20 minutes. Procedure: The patient was placed in the left lateral decubitis position and pre-procedure medications were administered. After a digital rectal examination of the ano-rectum, the video colonoscope was inserted into the rectum and advanced through the colon to the cecum. The colonoscope was slowly withdrawn in a retrograde panoramic fashion and the colon mucosa was carefully examined including a retroflexed view of the rectum. Findings and interventions are described below. Procedure Difficulty: Colon was long and tortuous and there was some loop formation. LLQ pressure was applied to intubate the cecum. Findings: Terminal Ileum: Not evaluated Cecum: Normal Ascending Colon: Normal Transverse Colon: Normal Descending Colon: Normal Sigmoid Colon: Moderate diverticulosis Rectum: A 3-4 mm diminutive appearing polyp - removed with a cold biopsy Ano-rectum: Moderate internal hemorrhoids Colon preparation: Good after copious irrigation and Fair in the right colon. [place] Bowel Preparation Scale Right colon; 1 Transverse colon: 2 Left colon; 2 (0 = Unprepared colon segment with mucosa not seen due to solid stool that cannot be cleared. 1 = Portion of mucosa of the colon segment seen, but other areas of the colon segment not well seen due to staining, residual stool and/or opaque liquid. 2 = Minor amount of residual staining, small fragments of stool and/or opaque liquid, but mucosa of colon segment seen well. 3 = Entire mucosa of colon segment seen well with no residual staining, small fragments of stool or opaque liquid) Impression and Post Procedure Diagnosis: Colonoscopy Findings: One small polyp was removed Moderate diverticulosis seen in the sigmoid colon Small hemorrhoids on retroflexed exam. Plan: Pt has a FU appointment on 07/26/23 with DAVID Upton Repeat Colonoscopy in 5 years if polyps are adenomatous and due to fair prep in the right colon (Adult colonoscope for future colonoscopies). Above findings were reviewed with the patient and relevant handouts were given and the discharge area.
[2023-06-15 08:20] VITALS: BP 96/38; PULSE 75; RESP 18; TEMP 36.6; O2SAT 99
[2023-06-15 08:38] VITALS: BP 116/70; PULSE 90; RESP 18; TEMP 36.6; O2SAT 100
== END 2023-06-15 09:02 | disposition home or self-care (01) ==
PROVIDERS: Nurse Practitioner; PCP Internal Medicine; Visit Provider Internal Medicine Gastroenterology
PROC: 0DJD8ZZ Inspection of Lower Intestinal Tract, Via Natural or Artificial Opening Endoscopic (ICD-10-PCS; CPT 45378; principal; 2023-06-15 07:30)
DX: Z12.11 Encounter for screening for malignant neoplasm of colon (principal); K62.1 Rectal polyp; K56.2 Volvulus; K57.30 Diverticulosis of large intestine without perforation or abscess without bleeding; K64.8 Other hemorrhoids; K59.00 Constipation, unspecified; E11.9 Type 2 diabetes mellitus without complications; E78.00 Pure hypercholesterolemia, unspecified; K76.0 Fatty (change of) liver, not elsewhere classified; Z79.899 Other long term (current) drug therapy
CPT/HCPCS: 45380; 81025; 88305; J2704

== ENCOUNTER → 2023-06-15 06:24 | Outpatient (BNV) | payer BC, SELFPAY | PROVIDERS: PCP Internal Medicine; Visit Provider Internal Medicine Gastroenterology | DX: Z12.11 Encounter for screening for malignant neoplasm of colon (principal); K59.04 Chronic idiopathic constipation; K63.5 Polyp of colon; K57.30 Diverticulosis of large intestine without perforation or abscess without bleeding | CPT/HCPCS: 45380 ==

== ENCOUNTER 2023-06-22 10:00 | Outpatient (AMB) | payer BC, SELFPAY ==
[2023-06-22 10:00] VITALS: BMI 31.3
--- NOTE | 2023-06-22 10:00 | MHC.OFFVIS ---
Intake Vital Signs 06/22/23 10:00 Height 5 ft 2 in Weight 171 lb BMI 31.3 Intake Visit Reasons: 2 week follow up Right GSV RFA 06/04/23 Intake Note: Patient presents for two week follow up s/p Right GSV RFA on 06/04/23/. Patient states she feels pressure on her ankle when working but overall her leg feels good. No pain, no swelling or redness. Accompanied by: Spouse Allergies No Known Allergies Allergy (Verified 06/22/23 10:04) HPI 2 week follow up Right GSV RFA 06/04/23 HPI Details Very pleasant 48-year-old female presents for follow-up regarding right great saphenous vein ablation. She has done extremely well with that. No issues postprocedure. She is concerned about large varicosities on her left calf and thigh. She now presents for follow-up. Of note she has been compliant with her compression stockings which have provided minimal relief. [facility] Medical History (Updated 06/04/23 @ 09:25 by Jose Bowling MD) Mother currently breast-feeding Tinea pedis Impacted cerumen of right ear Cervical cancer screening Annual physical exam Fatty liver Hypercholesterolemia PCOS (polycystic ovarian syndrome) Type 2 diabetes mellitus with hyperglycemia Surgical History (Updated 06/15/23 @ 06:40 by Odalis Crabtree RN) H/O varicose vein ligation and stripping History of section Epidermoid cyst of skin of chest Closed right ankle fracture Hx of cholecystectomy Family History Paternal Grandmother Oral cancer Maternal Grandmother Cervical cancer Social History Housing: House Alcohol intake: current Alcohol intake frequency: a few times a month Patient Tobacco Use Status: Never used Tobacco e-Cigarette/Vaping Use: Never Used Second Hand Smoke Exposure: No Current occupational status: employed Cognitive needs: No Hearing needs: No Vision needs: No Review of Systems Const Reports as per HPI ENT Reports no additional complaints Card Denies chest pain, Denies chest pain at rest and Denies chest pain with activity Resp Denies chest congestion and Denies cough GI Reports no additional complaints Musc Details: pain over varicosities, aching of lower extremities, swelling, cramping, heaviness and tiredness, itching Denies abnormal gait Skin/Breast Reports pruritus and Denies wounds Neuro Reports no additional complaints and Denies abnormal gait Psych Denies no additional complaints Physical Exam Vital Signs: BMI result Body Mass Index 31.3 Const General: cooperative, healthy appearing and comfortable Orientation/consciousness: oriented to person, oriented to place and oriented to time Neck Carotids: no bruits Chest Chest palpation & inspection: normal inspection of the chest and normal palpation of entire chest wall Resp Effort & Inspection: normal respiratory effort and able to speak in complete sentences Cardio Rate: regular rate Heart sounds: S1 normal heart sound present and S2 normal heart sound present Peripheral pulses: Peripheral pulses 2+ throughout GI Inspection: Yes normal to inspection Skin Other: +2 edema, large rope-like varicosities greater than 4 mm left thigh and calf CEAP Classification C4 - skin color changes Ep - Etiology Primary As - superficial veins P - reflux General skin exam: dry skin Neuro General: oriented to person, oriented to place and oriented to time Extrem Right lower extremity: full ROM, normal capillary refill and edema Left lower extremity: full ROM, normal capillary refill and edema Psych Mental Status: mental status grossly normal Assessment & Plan Assessment & Plan (1) Varicose veins of left lower extremity with inflammation: Code(s): I83.12 - Varicose veins of left lower extremity with inflammation Plan: This patient has varicose veins with inflammation. They continue to be a source of discomfort for the patient. The patient has tried conservative treatment with compression, leg elevation and exercise program for over 3 months time. They have been compliant with all treatment. This has provided minimal relief for the patient. I do not anticipate this course of treatment will alter the underlying etiology. The patient has been scheduled for lower extremity venous treatment inclusive of --- left leg microphlebectomy. Risks, benefits, and complications of this procedure has been discussed in detail with the patient including but not limited to bleeding, infection, and the development of a DVT. The patient has demonstrated a clear understanding and has consented. We will schedule the patient as soon as possible. Thank you for allowing us to participate in this patient's care. If there are any questions or concerns please do not hesitate to contact us. Coding Level of Care Code Est Pt Level 4 (14865) Diagnoses Varicose veins of left lower extremity with inflammation I83.12
== END 2023-06-22 10:34 | disposition home or self-care (01) ==
PROVIDERS: PCP Internal Medicine; Visit Provider Surgery Vascular Surgery
DX: I83.12 Varicose veins of left lower extremity with inflammation (principal)
CPT/HCPCS: 99214

== ENCOUNTER → 2023-06-22 10:00 | Outpatient (BNVA) | payer BC, SELFPAY | PROVIDERS: PCP Internal Medicine; Visit Provider Surgery Vascular Surgery ==

== ENCOUNTER 2023-07-09 | Outpatient (REF) | payer BC, SELFPAY ==
--- NOTE | 2023-07-08 10:01 | HO.ANESPROP2 ---
HPI - Anesthesia Eval Consult details Narrative: 48yo F for Colonoscopy PMFSH Active Problems Active Problems: All Active Problems Menometrorrhagia (Acute) Vitamin D deficiency (Acute) Varicose veins of right lower extremity with inflammation (Acute) Varicose veins of left lower extremity with inflammation (Acute) Obesity (BMI 30.0-34.9) (Acute) Screening for breast cancer (Acute) Varicose vein of leg (Acute) Screening for colon cancer (Acute) Anemia (Acute) Onychomycosis (Acute) Constipation (Acute) Annual physical exam (Acute) Fatty liver (Acute) Hypercholesterolemia (Acute) PCOS (polycystic ovarian syndrome) (Acute) Type 2 diabetes mellitus with hyperglycemia (Acute) Past Medical History Medical History (Updated 06/04/23 @ 09:25 by Jose Bowling MD) Mother currently breast-feeding Tinea pedis Impacted cerumen of right ear Cervical cancer screening Annual physical exam Fatty liver Hypercholesterolemia PCOS (polycystic ovarian syndrome) Type 2 diabetes mellitus with hyperglycemia Family History Family History Paternal Grandmother Oral cancer Maternal Grandmother Cervical cancer Family history of problems with anesthesia: No Surgical History Surgical History (Updated 07/07/23 @ 11:54 by Princess Puckett) Hx of colonoscopy H/O varicose vein ligation and stripping History of section Epidermoid cyst of skin of chest Closed right ankle fracture Hx of cholecystectomy History of Problems with Anesthesia: No Social History Social History Housing: House Alcohol intake: current Alcohol intake frequency: a few times a month Patient Tobacco Use Status: Never used Tobacco e-Cigarette/Vaping Use: Never Used Second Hand Smoke Exposure: No Current occupational status: employed Cognitive needs: No Hearing needs: No Vision needs: No Meds Allergies Allergy/AdvReac Type Severity Reaction Status Date / Time No Known Allergies Allergy Verified 06/22/23 10:04 Home Medications ?Medication ?Instructions ?Recorded ?Confirmed ?Last Taken ?Type multivitamin 1 tab PO DAILY 03/19/21 06/15/23 Unknown History metronidazole 0.75 % topical gel 1 appl topical DAILY 12/25/22 06/15/23 Unknown History Assessment and Plan Assessment Anesthesia Assessment: Chart Reviewed Final Anesthetic Review Family History of Problems with Anesthesia: No History of Problems with Anesthesia: No
== END 2023-07-09 00:01 | disposition home or self-care (01) ==
LOC: CF
PROVIDERS: PCP Internal Medicine; Visit Provider Surgery Vascular Surgery
DX: I83.12 Varicose veins of left lower extremity with inflammation (principal)
CPT/HCPCS: 37766

== ENCOUNTER 2023-07-09 12:29 | Outpatient (AMB) | payer BC, SELFPAY ==
[2023-07-09 12:31] VITALS: BMI 31.3
--- NOTE | 2023-07-09 12:31 | MHC.OFFVIS ---
Intake Vital Signs 07/09/23 12:31 Height 5 ft 2 in Weight 171 lb BMI 31.3 Intake Visit Reasons: Left LE Micro Accompanied by: Self / Same As Patient Allergies No Known Allergies Allergy (Verified 07/09/23 12:32) PFSH Medical History Mother currently breast-feeding Tinea pedis Impacted cerumen of right ear Cervical cancer screening Annual physical exam Fatty liver Hypercholesterolemia PCOS (polycystic ovarian syndrome) Type 2 diabetes mellitus with hyperglycemia Surgical History Hx of colonoscopy H/O varicose vein ligation and stripping History of section Epidermoid cyst of skin of chest Closed right ankle fracture Hx of cholecystectomy Family History Paternal Grandmother Oral cancer Maternal Grandmother Cervical cancer Social History Housing: House Alcohol intake: current Alcohol intake frequency: a few times a month Patient Tobacco Use Status: Never used Tobacco e-Cigarette/Vaping Use: Never Used Second Hand Smoke Exposure: No Current occupational status: employed Cognitive needs: No Hearing needs: No Vision needs: No Physical Exam Vital Signs: BMI result Body Mass Index 31.3 Office Procedures Vascular Office Procedure Details Details: Diagnosis: Left Leg varicose veins with inflammation Procedure: Left leg Microphlebectomy Anesthesia: Local Infiltration 20 cc, Tumescent: 0 cc. Varicose veins were marked in the standing position on the left leg and the patient was then placed in the supine position. The left lower extremity was prepared and draped to allow knee flexion in the sterile field. The patient had large superficial varicose veins with significant symptoms of pain. It was therefore determined to perform microphlebectomies of the clusters of varicose veins. The patient had bulging varicose veins which were previously marked in the standing position. A small stab incision was made longitudinally directly overlying the varicose vein in the calf and the varicose vein was grasped with a hemostat aided by a vein hook. It was then dissected as far proximally and distally as possible and avulsed. A total of 21 stab incisions were made and the procedure of stab phlebectomies was repeated 21 times. Hemostasis was checked and stab incision sites were closed with steri-strips and sterile dressing was given with gauze and krilex wrap followed by an silke bandage. There were no complications and blood loss was minimal. Post-Op instructions were given and a follow-up appointment was recommended. 13505 - Stab Phlebectomy >20 All charges added?: Procedure code (CPT) selection complete Assessment & Plan Assessment & Plan (1) Varicose veins of left lower extremity with inflammation: Comment: 07/09/2023 - left leg microphlebectomy Code(s): I83.12 - Varicose veins of left lower extremity with inflammation Plan: See op report Coding Level of Care Code Procedure Only Diagnoses Varicose veins of left lower extremity with inflammation I83.12 CPT Codes Details - Vascular 6: 53224 - Stab Phlebectomy >20 ([id number])
== END 2023-07-09 13:38 | disposition home or self-care (01) ==
PROVIDERS: PCP Internal Medicine; Visit Provider Surgery Vascular Surgery
DX: I83.12 Varicose veins of left lower extremity with inflammation (principal)
CPT/HCPCS: 37766

== ENCOUNTER 2023-07-22 14:02 | Outpatient (AMB) | payer BC, SELFPAY ==
--- NOTE | 2023-07-22 14:07 | A.OFFVIS_ITS ---
Vital Signs 07/22/23 14:11 Height 5 ft 2 in Weight 171 lb BMI 31.3 Intake Visit Reasons: 2 week follow up Left LE Micro Intake Note: 2 week follow up Left LE Micro 07/09/23 and Hx of Right GSV RFA 06/04/23. Pt states that she still has some bruising and some steri strips that need to be removed. States it is still a bit sore. Accompanied by: Self / Same As Patient Allergies No Known Allergies Allergy (Verified 07/22/23 14:16) HPI HPI 2 week follow up Left LE Micro: Details: Very pleasant 48-year-old female presents for follow-up status post left leg microphlebectomy. Reports legs feel perfectly fine. She is doing much better. Swelling and discomfort have decreased. She has no issues with her right lower extremity. [facility] Medical History Mother currently breast-feeding Tinea pedis Impacted cerumen of right ear Cervical cancer screening Annual physical exam Fatty liver Hypercholesterolemia PCOS (polycystic ovarian syndrome) Type 2 diabetes mellitus with hyperglycemia Surgical History Hx of colonoscopy H/O varicose vein ligation and stripping History of section Epidermoid cyst of skin of chest Closed right ankle fracture Hx of cholecystectomy Family History Paternal Grandmother Oral cancer Maternal Grandmother Cervical cancer Social History Housing: House Alcohol intake: current Alcohol intake frequency: a few times a month Patient Tobacco Use Status: Never used Tobacco e-Cigarette/Vaping Use: Never Used Second Hand Smoke Exposure: No Current occupational status: employed Cognitive needs: No Hearing needs: No Vision needs: No Review of Systems Const All systems reviewed & are unremarkable except as noted in HPI and below Reports no additional complaints ENT Reports Normal hearing present Card Denies chest pain, Denies chest pain at rest, Denies chest pain with activity and Denies pedal edema Resp Denies cough GI Denies abdominal pain Musc Denies abnormal gait, Denies muscle cramps and Denies radiating pain into limb Skin/Breast Denies skin ulcer and Denies wounds Neuro Reports Normal hearing present and Denies abnormal gait Psych Reports no additional complaints Physical Exam Vital Signs: BMI result Body Mass Index 31.3 Const General: cooperative, healthy appearing and comfortable Orientation/consciousness: oriented to person, oriented to place and oriented to time HEENT Head: Yes normal to inspection Neck Neck: Yes normal visual inspection Carotids: no bruits Chest Chest palpation & inspection: normal inspection of the chest Resp Effort & Inspection: normal respiratory effort and able to speak in complete sentences Auscultation: clear to auscultation bilaterally, no crackles, no rales, no rhonchi and no wheezes Cardio Rate: regular rate Rhythm: regular rhythm Heart sounds: S1 normal heart sound present and S2 normal heart sound present Bruits: no carotid bruits Peripheral pulses: Peripheral pulses 2+ throughout GI Inspection: Yes normal to inspection Skin Wounds: no wounds Hair: normal Neuro General: oriented to person, oriented to place and oriented to time Cranial nerves: Yes CN's II-XII intact bilaterally and Yes Normal hearing present Cognition (Neuro): normal cognition Motor exam (neuro): 5/5 motor strength present throughout Extrem Other: venous exam: No significant superficial varicosities or spider telangiectasias, minimal edema General: No clubbing, No cyanosis and No edema Psych Appearance: grossly normal Mental Status: mental status grossly normal Speech and movement: Normal speech and movement present Assessment & Plan Assessment & Plan (1) Varicose veins of right lower extremity with inflammation: Comment: 06/04/2023 - right great saphenous vein radiofrequency ablation Code(s): I83.11 - Varicose veins of right lower extremity with inflammation Category: Medical Plan: See below (2) Varicose veins of left lower extremity with inflammation: Comment: 07/09/2023 - left leg microphlebectomy Code(s): I83.12 - Varicose veins of left lower extremity with inflammation Category: Medical Plan: The patient has done extremely well with all venous treatments. Patient's may often experience postprocedure phlebitic episodes and I have discussed with the patient use of warm compresses and NSAIDS if tolerated for pain discomfort. In addition, I have discussed continued conservative measures including use of compression, leg elevation, and exercise. The patient was also given an information sheet regarding appropriate use of compression stockings and future purchases. Thank you for allowing us to care for your patient with venous disease.
[2023-07-22 14:11] VITALS: BMI 31.3
== END 2023-07-22 14:37 | disposition home or self-care (01) ==
PROVIDERS: PCP Internal Medicine; Visit Provider Surgery Vascular Surgery
DX: I83.11 Varicose veins of right lower extremity with inflammation (principal); I83.12 Varicose veins of left lower extremity with inflammation
CPT/HCPCS: 99213

== ENCOUNTER → 2023-07-22 14:02 | Outpatient (BNVA) | payer BC, SELFPAY | PROVIDERS: PCP Internal Medicine; Visit Provider Surgery Vascular Surgery ==

== ENCOUNTER → 2023-07-26 12:04 | Outpatient (BNVA) | payer BC, SELFPAY | PROVIDERS: PCP Internal Medicine; Visit Provider Physician Assistant ==

== ENCOUNTER 2023-07-26 12:09 | Outpatient (AMB) | payer BC, SELFPAY ==
--- NOTE | 2023-07-26 12:07 | MHC.OFFVIS ---
Vital Signs 07/26/23 12:09 Height 5 ft 2 in Weight 168 lb BMI 30.7 BP 105/66 Blood Pressure Location Lt brachial Position Sitting Pulse 84 Intake Visit Reasons: s/p colon Intake Note: Patient follow up for Colonoscopy results. Patient cc: constipation with hemorrhoids. Denies any other GI issues. Senior Interactive Producer Required: No Accompanied by: Self / Same As Patient Allergies No Known Allergies Allergy (Verified 07/26/23 12:07) HPI Comments Details: A 48 y/o female f/u after colonoscopy-her accompanies her she tolerated procedure well Senna daily- still some constipation however maintain a high-fiber diet does notice some improvement there. She is seeing pcp next wk- labs pending Reviewed procedure report, pathology and recommendation No nausea, vomiting, hematemesis, hematochezia fever chills PFSH Medical History (Updated 07/26/23 @ 13:40 by Aydee March PA-C) Hyperplastic colon polyp Mother currently breast-feeding Tinea pedis Impacted cerumen of right ear Cervical cancer screening Annual physical exam Fatty liver Hypercholesterolemia PCOS (polycystic ovarian syndrome) Type 2 diabetes mellitus with hyperglycemia Surgical History Hx of colonoscopy H/O varicose vein ligation and stripping History of section Epidermoid cyst of skin of chest Closed right ankle fracture Hx of cholecystectomy Family History Paternal Grandmother Oral cancer Maternal Grandmother Cervical cancer Social History Housing: House Alcohol intake: current Alcohol intake frequency: a few times a month Patient Tobacco Use Status: Never used Tobacco e-Cigarette/Vaping Use: Never Used Second Hand Smoke Exposure: No Current occupational status: employed Cognitive needs: No Hearing needs: No Vision needs: No Review of Systems Const All systems reviewed & are unremarkable except as noted in HPI and below Physical Exam Vital Signs: Last Vital Signs Pulse 84 07/26/23 12:09 BP 105/66 07/26/23 12:09 BMI result Body Mass Index 30.7 Const General: cooperative, healthy appearing and comfortable Limitations: no limitations Psych Appearance: grossly normal and well kempt Mental Status: mental status grossly normal Speech and movement: Normal speech and movement present Affect: normal affect Attitude: cooperative Thought process: Normal thought process present Thought content: Normal thought content present Insight: Good insight present (Psych) Judgement: Good judgement present (Psych) Results Reviewed Results Reviewed: Impression and Post Procedure Diagnosis: Colonoscopy Findings: One small polyp was removed Moderate diverticulosis seen in the sigmoid colon Small hemorrhoids on retroflexed exam. Plan: Pt has a FU appointment on 07/26/23 with DAVID Upton Repeat Colonoscopy in 5 years if polyps are adenomatous and due to fair prep in the right colon (Adult colonoscope for future colonoscopies). Above findings were reviewed with the patient and relevant handouts were given and the discharge area. yefri: Brianne Felton Hyperplastic polyp Repeat 5 years - due to inadequate prep Assessment & Plan Assessment & Plan (1) Diverticulosis of colon: Code(s): K57.30 - Diverticulosis of large intestine without perforation or abscess without bleeding Category: Medical Plan: ER protocol (2) Hyperplastic colon polyp: Code(s): K63.5 - Polyp of colon Category: Medical Plan: Asymptomatic colonoscopy 10 years (3) Hemorrhoids: Code(s): K64.9 - Unspecified hemorrhoids Category: Medical Plan: Avoid straining High-fiber diet Plan Repeat asymptomatic colonoscopy 10 Diverticulosis/diverticulitis ER protocol Maintain high-fiber diet Foods to avoid Avoid straining with hemorrhoid Patient Instructions: Repeat asymptomatic colonoscopy 10 Diverticulosis/diverticulitis ER protocol Maintain high-fiber diet Foods to avoid-nuts, seeds, corn ETC Avoid straining with hemorrhoid Encouraged to call questions or concerns
[2023-07-26 12:09] VITALS: BP 105/66; PULSE 84; BMI 30.7
== END 2023-07-26 13:27 | disposition home or self-care (01) ==
PROVIDERS: PCP Internal Medicine; Visit Provider Physician Assistant
DX: K57.30 Diverticulosis of large intestine without perforation or abscess without bleeding (principal); K63.5 Polyp of colon; K64.9 Unspecified hemorrhoids
CPT/HCPCS: 99213

== ENCOUNTER 2023-08-05 12:31 | Outpatient (REF) | payer BC, SELFPAY ==
[2023-08-05 12:45] LABS: MANUAL DIFF FLAG NO
[2023-08-05 13:39] LABS: Basophils Percent Auto 0.6 % (0-2); Eosinophils Absolute Auto 0.2 X10*3/uL (0.0-0.4); Eosinophils Percent Auto 3.4 % (0-4); Hematocrit 26.9 % (37.0-47.0); Hemoglobin 7.5 g/dl (12.0-16.0); Imm Gran Abs Auto 0.03 X10*3/uL (0.00-0.03); Imm Gran Pct Auto 0.4 % (0.0-0.4); Immature Retic Fraction 29.8 % (3.0-15.9); Lymphocytes Percent Auto 28.6 % (20-40); Mean Corpuscular HGB Conc 27.9 g/dl (31.0-35.0); Mean Corpuscular Hemoglobin 17.2 pg (27.0-33.0); Mean Corpuscular Volume 61.6 fL (80.0-98.0); Monocytes Absolute Auto 0.6 X10*3/uL (0.1-1.2); Monocytes Percent Auto 8.3 % (2-11); Neutrophils Percent Auto 58.7 % (45-73); Platelet Count 228 X10*3/uL (160-400); Red Blood Count 4.37 X10*6/uL (4.20-5.50); Red Cell Distribution Width 20.7 % (11.0-16.0); Retic HGB Equivalent 17.8 pg (30.0-35.0); Reticulocyte Percent 2.8 % (0.5-1.8); Reticulocytes Absolute 0.123 X10*6/uL (0.026-0.095); White Blood Count 6.8 X10*3/uL (4.8-10.8)
[2023-08-05 14:10] LABS: Iron 12 mcg/dL (30-160); Percent Iron Saturation 3 % (15-50); Total Iron Binding Capacity 430 mcg/dL (228-428); Unsaturated Iron Binding 418 ug/dL
[2023-08-05 14:21] LABS: Ferritin 7 ng/mL (10-250)
[2023-08-05 14:35] LABS: Vitamin B12 486 pg/mL (200-900)
[2023-08-05 14:37] LABS: Folate 11.6 ng/mL (> or = 4.0)
== END 2023-08-05 12:32 | disposition home or self-care (01) ==
LOC: HO.LAB 12:31
PROVIDERS: PCP Internal Medicine; Visit Provider Internal Medicine
DX: D64.9 Anemia, unspecified (principal)
CPT/HCPCS: 36415; 82607; 82728; 82746; 83540; 85025; 85045

== ENCOUNTER 2023-08-06 09:48 | Outpatient (AMB) | payer BC, SELFPAY ==
--- NOTE | 2023-08-06 09:57 | A.OFFPC_ITS ---
Vital Signs 08/06/23 09:58 Height 5 ft 2 in Weight 168 lb BMI 30.7 BP 114/80 Blood Pressure Location Lt brachial Position Sitting Pulse 82 Pulse Source Pulse Oximeter Pulse Oximetry (%) 98 Oxygen Delivery Method Room Air Intake Visit Reasons: anemia Allergies No Known Allergies Allergy (Verified 08/06/23 09:59) Tobacco use date assessed: 04/30/23 Dental Screening Dental Screen Date: 04/30/23 HPI anemia HPI Details 48-year-old obese female with diabetes m ellitus hypercholesterolemia anemia with menorrhagia last seen in April 2023. Patient had a colonoscopy done in June 2023. Showing 1 small polyp removed moderate diverticulosis with small hemorrhoids and was advised to repeat in 10 years patient also saw the vascular surgeon has had venous treatments postprocedure warm compresses and NSAIDs. When sitting down elevate the legs, exercise, and support stockings. Blood work was done 08/05/2023 noted to have a significant anemia of 7.5 which has been present since April 2023 microcytic [facility] Medical History (Updated 08/06/23 @ 10:38 by Sumit Oliveira MD) Screening for colon cancer Hyperplastic colon polyp Mother currently breast-feeding Tinea pedis Impacted cerumen of right ear Cervical cancer screening Annual physical exam Fatty liver Hypercholesterolemia PCOS (polycystic ovarian syndrome) Type 2 diabetes mellitus with hyperglycemia Surgical History Hx of colonoscopy H/O varicose vein ligation and stripping History of section Epidermoid cyst of skin of chest Closed right ankle fracture Hx of cholecystectomy Family History (Updated 08/06/23 @ 10:01 by Dolly Aguilar CMA) Paternal Grandmother Oral cancer Maternal Grandmother Cervical cancer Social History Housing: House Alcohol intake: current Alcohol intake frequency: a few times a month Patient Tobacco Use Status: Never used Tobacco e-Cigarette/Vaping Use: Never Used Second Hand Smoke Exposure: No Current occupational status: employed Cognitive needs: No Hearing needs: No Vision needs: No Questionnaire PHQ-9 Over the last 2 weeks, how often have you been bothered by any of the following problems? 1. Little interest or pleasure in doing things: not at all 2. Feeling down, depressed, or hopeless: not at all 3. Trouble falling or staying asleep, or sleeping too much: not at all 4. Feeling tired or having little energy: not at all 5. Poor appetite or overeating: not at all 6. Feeling bad about yourself - or that you are a failure or have let yourself or your family down: not at all 7. Trouble concentrating on things, such as reading the newspaper or watching television: not at all 8. Moving or speaking so slowly that other people could have noticed. Or the opposite - being so fidgety or restless that you have been moving around a lot more than usual: not at all 9. Thoughts that you would be better off or of hurting yourself in some way: not at all Total score: 0 Depression Screening Interpretation: Negative Depression Screening Done: Yes 75251 - PHQ-9 Billing: Yes Source: Developed by Drs. Abe Irving, Jess Molina, Jayme Peterson and colleagues, with an educational mynor from [employer]. Thrive Questionnaire Date Thrive assessed: 08/06/23 I am a: Patient What is your living situation today?: I have a steady place to live Within the past 12 months, did the food you bought not last and you didn't have the money to get more?: Never true Within the past 12 months, did you worry whether your food would run out before you got money to buy more?: Never true Do you have trouble paying for medicines?: No Do you have trouble getting transportation to medical appointments?: No Do you have trouble paying your heating and electricity bill?: No Do you have trouble taking care of your child, family member or friend?: No Do you have trouble with day-to-day activities such as bathing, preparing meals, shopping, managing finances, etc.?: No Are you currently unemployed and looking for a job?: No Are you interested in more education?: No Currently or been in a relationship where the following occur: no concerns reported THRIVE Score: 0 AUDIT C Alcohol Use Questionnaire (AUDIT-C) 1. How often do you have a drink containing alcohol?: Monthly or less 2. How many drinks containing alcohol do you have on a typical day when you are drinking?: 1 or 2 3. How often do you have six or more drinks on one occasion?: Never Total Score: 1 MUKESH-7 AMB Questionnaire MUKESH-7 Date MUKESH - 7 assessed: 08/06/23 Feeling nervous, anxious, or on edge: 0 = Not at all Not being able to stop or control worryin = Not at all Worrying too much about different things: 0 = Not at all Trouble relaxin = Not at all Being so restless that it is hard to sit still: 0 = Not at all Becoming easily annoyed or irritable: 0 = Not at all Feeling afraid as if something awful might happen: 0 = Not at all Total MUKESH-7 score (0-4 normal; 5-9 mild; 10-14 moderate; 15-21 severe): 0 Source: Developed by Drs. Abe Irving, Jess Molina, Jayme Peterson and colleagues, with an educational mynor from [employer]. Physical exam (Primary Care) Vital Signs: Last Vital Signs Pulse 82 08/06/23 09:58 BP 114/80 08/06/23 09:58 Pulse Ox 98 08/06/23 09:58 Oxygen Delivery Method Room Air 08/06/23 09:58 BMI result Body Mass Index 30.7 Tobacco/Smoking Status: Tobacco use Status Tobacco use date assessed 04/30/23 08/06/23 10:02 Patient Tobacco Use Status Never used Tobacco 08/06/23 10:02 e-Cigarette/Vaping Use Never Used 08/06/23 10:02 PHQ-9: PHQ-9 Score PHQ-9: Total score 0 08/06/23 10:39 Depression Screening Interpretation: Negative Thrive Assessment: Date of Thrive Assessment Date Thrive assessed 08/06/23 08/06/23 10:02 Currently or been in a relationship where the following occur: no concerns reported Const General: alert; No acute distress Eyes Conjunctivae: conjunctivae normal Resp Auscultation: clear to auscultation bilaterally Cardio Rate: regular rate Rhythm: regular rhythm GI Inspection: Yes normal to inspection Extrem General: Yes normal to inspection and No edema Assessment and Plan Assessment & Plan (1) Iron deficiency anemia: Code(s): D50.9 - Iron deficiency anemia, unspecified Plan: Concerned about patient being iron deficient and severe anemia. (2) Menometrorrhagia: Code(s): N92.1 - Excessive and frequent menstruation with irregular cycle Plan: Patient has been follow-up with OB Gynecology (3) Varicose veins of right lower extremity with inflammation: Comment: 06/04/2023 - right great saphenous vein radiofrequency ablation Code(s): I83.11 - Varicose veins of right lower extremity with inflammation Plan: Patient follows with the vascular surgeon doing good after procedure (4) Obesity (BMI 30.0-34.9): Code(s): E66.9 - Obesity, unspecified Plan: Diet and exercise (5) Type 2 diabetes mellitus with hyperglycemia: Comment: [facility] 02/2022 Code(s): E11.65 - Type 2 diabetes mellitus with hyperglycemia Plan: Decrease the amount of carbohydrate intake, pasta, bread, rice and potatoes are all sugar and that is aside from all the sweet stuff, remember that fruits are good but they are Sweet also. Hemoglobin A1c goal of less than 6.5. Controlled Coding Level of Care Code Est Pt Level 4 (28018) Diagnoses Iron deficiency anemia D50.9 Menometrorrhagia N92.1 Varicose veins of right lower extremity with inflammation I83.11 Obesity (BMI 30.0-34.9) E66.9 Type 2 diabetes mellitus with hyperglycemia E11.65
[2023-08-06 09:58] VITALS: BP 114/80; PULSE 82; O2SAT 98; BMI 30.7
== END 2023-08-06 10:50 | disposition home or self-care (01) ==
PROVIDERS: PCP Internal Medicine; Visit Provider Internal Medicine
DX: E11.65 Type 2 diabetes mellitus with hyperglycemia (principal); E66.9 Obesity, unspecified; Z68.30 Body mass index [BMI] 30.0-30.9, adult; D50.9 Iron deficiency anemia, unspecified; N92.1 Excessive and frequent menstruation with irregular cycle; I83.11 Varicose veins of right lower extremity with inflammation
CPT/HCPCS: 99214

== ENCOUNTER → 2023-08-17 14:20 | Outpatient (BNV) | payer BC, SELFPAY | PROVIDERS: PCP Internal Medicine; Referring Provider Internal Medicine; Visit Provider Internal Medicine | DX: D50.9 Iron deficiency anemia, unspecified (principal) | CPT/HCPCS: 99204 ==

== ENCOUNTER 2023-09-13 09:06 | Outpatient (REF) | payer BC, SELFPAY ==
[2023-09-13 10:37] LABS: Rheumatoid Factor < 13.0 IU/mL (<15.0)
[2023-09-13 11:00] LABS: Erythrocyte Sedimentation Rate 9 MM/HR (0-20)
[2023-09-16 12:33] LABS: Anti Nuclear Antibody Screen POSITIVE (NEGATIVE); Anti Nuclear Antibody Titer 1:40 titer
[2023-09-16 12:42] LABS: ANA Titer 3 TPN
== END 2023-09-13 09:07 | disposition home or self-care (01) ==
LOC: HO.LAB 09:06
PROVIDERS: PCP Internal Medicine; Visit Provider Internal Medicine
DX: D50.9 Iron deficiency anemia, unspecified (principal); R79.89 Other specified abnormal findings of blood chemistry
CPT/HCPCS: 36415; 85652; 86038; 86039; 86431

== ENCOUNTER 2023-09-21 14:30 | Outpatient (RCR) | payer BC, SELFPAY ==
[2023-08-23 08:03] VITALS: BP 110/61; PULSE 84; RESP 16; TEMP 36.8; O2SAT 100
[2023-08-23] MEDS: 0.9 % Sodium Chloride Flush 10 ML SYRINGE 5 ML IVFLUSH (08:05)
[2023-08-23] MEDS: Iron Sucrose Complex 200 MG in 0.9 % Sodium Chloride 100 ML 440 MG IV (08:11)
[2023-08-31 09:22] VITALS: BMI 31.3
[2023-08-31 09:25] VITALS: BP 100/61; RESP 18; TEMP 36.9; O2SAT 100
[2023-08-31] MEDS: Iron Sucrose Complex 200 MG in 0.9 % Sodium Chloride 100 ML 440 MG IV (09:40)
[2023-08-31] MEDS: 0.9 % Sodium Chloride Flush 10 ML SYRINGE 5 ML IVFLUSH (09:41)
[2023-09-06 11:42] VITALS: BP 111/72; PULSE 71; RESP 16; TEMP 36.6; O2SAT 100
[2023-09-06] MEDS: Iron Sucrose Complex 200 MG in 0.9 % Sodium Chloride 100 ML 440 MG IV (11:52)
[2023-09-13 09:31] VITALS: BP 118/77; PULSE 78; RESP 16; TEMP 36.6; O2SAT 98
[2023-09-13] MEDS: Iron Sucrose Complex 200 MG in 0.9 % Sodium Chloride 100 ML 440 MG IV (09:34)
[2023-09-21 14:17] VITALS: BP 107/67; PULSE 79; RESP 16; TEMP 37.2; O2SAT 98
[2023-09-21] MEDS: Iron Sucrose Complex 200 MG in 0.9 % Sodium Chloride 100 ML 440 MG IV (14:25)
== END 2023-09-21 14:42 | disposition home or self-care (01) ==
LOC: HO.INF 14:30
PROVIDERS: Visit Provider Internal Medicine
DX: D64.9 Anemia, unspecified (principal)
CPT/HCPCS: 96374; J1756

== ENCOUNTER 2023-11-08 08:02 | Outpatient (AMB) | payer BC, SELFPAY ==
--- NOTE | 2023-11-08 08:03 | A.OFFPC_ITS ---
Vital Signs 11/08/23 08:05 Height 5 ft 2 in Weight 174 lb BMI 31.8 BP 114/72 Blood Pressure Location Lt brachial Position Sitting Pulse 67 Pulse Source Pulse Oximeter Pulse Oximetry (%) 100 Oxygen Delivery Method Room Air Intake Visit Reasons: severe anemia Allergies No Known Allergies Allergy (Verified 11/08/23 08:06) Medication List - Last Reconciled 11/08/23 by Marisabel Bell PA-C ascorbic acid (vitamin C) 500 mg PO .QD ferrous sulfate (Feosol) 325 mg PO DAILY flash glucose scanning reader ([employer] An[employer] 14 Day [place]) As directed flash glucose sensor ([employer] An[employer]bal 14 Day Sensor kit) As directed metronidazole 0.75% 1 appl topical DAILY multivitamin 1 tab PO DAILY Tobacco use date assessed: 04/30/23 Dental Screening Dental Screen Date: 04/30/23 HPI severe anemia HPI Details 48-year-old female with past medical his tory of diabetes mellitus, PCOS, hypercholesterolemia, fatty liver disease, and iron deficiency anemia last seen by Dr. Oliveira 08/06/2023 coming in for follow up. In review of the notes, she regularly Venofer infusions for chronic anemia. Seen by Hematology Oncology 08/2023 for failing p.o. iron was referred for Venofer infusions and follow up in 3 months. Today she tells us she has gone for IV venofer injections for the last 5 weeks and is due to follow up with hematology/oncology this week or next week for follow up. She mentions since the infusions she no longer craves ice chips and has been able to gain some weight. She denies any fatigue or lightheadedness. Denies any constipation and has been on bowel regimen of Miralax and liquid vit amins. Her rosacea has been flaring up in the last month as well without a known trigger. Lastly she mentions she has been gaining weight and her diet has changed since the anemia has been improving and is concerned her blood sugar may be elevated. [facility] Medical History (Updated 11/08/23 @ 08:16 by Marisabel Bell PA-C) Screening for colon cancer Hyperplastic colon polyp Mother currently breast-feeding Tinea pedis Impacted cerumen of right ear Cervical cancer screening Annual physical exam Fatty liver Hypercholesterolemia PCOS (polycystic ovarian syndrome) Type 2 diabetes mellitus with hyperglycemia Surgical History (Updated 08/17/23 @ 15:12 by Kayley Macario MD) Hx of colonoscopy H/O varicose vein ligation and stripping History of section Epidermoid cyst of skin of chest Closed right ankle fracture Hx of cholecystectomy Family History Paternal Grandmother Oral cancer Maternal Grandmother Cervical cancer Social History (Updated 08/17/23 @ 14:31 by Juany Nogueira) Household Members: Spouse and Family Housing: House Alcohol intake: current Alcohol intake frequency: a few times a month Patient Tobacco Use Status: Never used Tobacco e-Cigarette/Vaping Use: Never Used Second Hand Smoke Exposure: No Current occupational status: employed Cognitive needs: No Hearing needs: No Vision needs: No Questionnaire PHQ-9 Over the last 2 weeks, how often have you been bothered by any of the following problems? 1. Little interest or pleasure in doing things: not at all 2. Feeling down, depressed, or hopeless: not at all 3. Trouble falling or staying asleep, or sleeping too much: not at all 4. Feeling tired or having little energy: not at all 5. Poor appetite or overeating: not at all 6. Feeling bad about yourself - or that you are a failure or have let yourself or your family down: not at all 7. Trouble concentrating on things, such as reading the newspaper or watching television: not at all 8. Moving or speaking so slowly that other people could have noticed. Or the opposite - being so fidgety or restless that you have been moving around a lot more than usual: not at all 9. Thoughts that you would be better off or of hurting yourself in some way: not at all Total score: 0 Depression Screening Interpretation: Negative Depression Screening Done: Yes 15179 - PHQ-9 Billing: Yes Source: Developed by Drs. Abe Irving, Jess Molina, Jayme Peterson and colleagues, with an educational mynor from [employer]. Thrive Questionnaire Date Thrive assessed: 08/06/23 AUDIT C Alcohol Use Questionnaire (AUDIT-C) 1. How often do you have a drink containing alcohol?: Monthly or less 2. How many drinks containing alcohol do you have on a typical day when you are drinking?: 1 or 2 3. How often do you have six or more drinks on one occasion?: Never Total Score: 1 MUKESH-7 AMB Questionnaire MUKESH-7 Date MUKESH - 7 assessed: 08/06/23 Source: Developed by Drs. Abe Irving, Jess Molina, Jayme Peterson and colleagues, with an educational mynor from [employer]. Review of Systems Const Denies body aches, Denies chills, Denies fatigue, Denies fever(s), Denies headache(s) and Denies poor appetite Eyes Reports no additional complaints ENT Denies dizziness and Denies headache(s) Card Denies chest pain, Denies syncope, Denies lightheadedness and Denies dyspnea Resp Denies dyspnea GI Denies abdominal pain, Denies constipation, Denies diarrhea, Denies nausea and Denies vomiting Reports no additional complaints Musc Reports no additional complaints and Denies abnormal gait Skin/Breast Reports as per HPI Neuro Denies abnormal gait, Denies dizziness, Denies syncope and Denies headache(s) Psych Reports no additional complaints Endo Denies fatigue Physical exam (Primary Care) Vital Signs: Last Vital Signs Pulse 67 11/08/23 08:05 BP 114/72 11/08/23 08:05 Pulse Ox 100 11/08/23 08:05 Oxygen Delivery Method Room Air 11/08/23 08:05 BMI result Body Mass Index 31.8 Tobacco/Smoking Status: Tobacco use Status Tobacco use date assessed 04/30/23 11/08/23 08:03 Patient Tobacco Use Status Never used Tobacco 11/08/23 08:03 e-Cigarette/Vaping Use Never Used 11/08/23 08:03 PHQ-9: PHQ-9 Score PHQ-9: Total score 0 11/08/23 08:15 Depression Screening Interpretation: Negative Thrive Assessment: Date of Thrive Assessment Date Thrive assessed 08/06/23 11/08/23 08:03 Const General: cooperative, healthy appearing, comfortable and no acute distress Orientation/consciousness: patient oriented x3 HENMT Head: Yes normocephalic Ears: hearing grossly normal bilaterally General nose exam: Normal external nose present Eyes General: appearance normal, both eyes and all related structures Conjunctivae: conjunctivae normal Neck Neck: Yes full ROM and Yes no lymphadenopathy Resp Effort & Inspection: normal respiratory effort Auscultation: clear to auscultation bilaterally, no crackles, no rales, no r honchi and no wheezes Cardio Rate: regular rate Rhythm: regular rhythm Skin Other: Facial flushing over bridge of nose and bilateral cheeks with scattered papulopustular lesions Neuro General: patient oriented x3 Gait exam (Neuro): Normal gait present Extrem General: Yes normal to inspection, Yes full ROM and No edema Psych Affect: normal affect Attitude: cooperative Insight: Good insight present (Psych) Judgement: Good judgement present (Psych) Results AMB Hemoglobin A1c AMB Hemoglobin A1c 6.0 % Last Edit by ANDREW Washington on 11/08/23 08:20 Assessment and Plan Assessment & Plan (1) Iron deficiency anemia: Code(s): D50.9 - Iron deficiency anemia, unspecified Plan: Receiving IV Venofer weekly for 6 weeks. Follow up with Hematology this month. (2) Rosacea: Code(s): L71.9 - Rosacea, unspecified Plan: Patient's history of rosacea and has not been seen by dermatology and some time. Previously treated with topical metronidazole with improvement, prescribed today. Referral for Dermatology sent. (3) Type 2 diabetes mellitus with hyperglycemia: Comment: [facility] 02/2022 Code(s): E11.65 - Type 2 diabetes mellitus with hyperglycemia Plan: Patient was previously on metformin but is no longer taking. Last A1c 08/2023 was 5.6% today is 6.0%. Patient was previously prescribed the injections but had issues with insurance which have now resolved. Wegovy 0.25 mg sent to pharmacy today, follow up in 2 months for annual physical. Plan Follow up in 2 months for annual physical. This note was constructed using voice recognition software. While every effort has been made to ensure accuracy and chlorobutadiene scrubber operator, still areas may have been included sometimes these areas may affect the content or meeting of the given symptoms. Total time spent caring for the patient today was 35 minutes. This includes time spent before the visit reviewing the chart, time spent during the visit, and time spent after the visit and documentation. Orders: Orders AMB Hemoglobin A1c Today E11.65 - Type 2 diabetes mellitus with hyperglycemia Referrals Dermatology Referral L71.9 - Rosacea, unspecified Medications: New metronidazole 0.75% 1 appl topical DAILY 45 grams 0RF semaglutide (weight loss) (Wegovy) administer weeks 1 through 4 of therapy 0.25 mg (0.5 mL) subcut QWEEK 2 mL 0RF Coding Level of Care Code Est Pt Level 4 (71244) Diagnoses Iron deficiency anemia D50.9 Rosacea L71.9 Type 2 diabetes mellitus with hyperglycemia E11.65
[2023-11-08 08:05] VITALS: BP 114/72; PULSE 67; O2SAT 100; BMI 31.8
== END 2023-11-08 08:27 | disposition home or self-care (01) ==
PROVIDERS: PCP Internal Medicine
DX: E11.65 Type 2 diabetes mellitus with hyperglycemia (principal)
CPT/HCPCS: 83036; 99214

== ENCOUNTER 2023-11-08 09:14 | Outpatient (REF) | payer BC, SELFPAY ==
[2023-11-08 10:06] LABS: Hematocrit 37.8 % (37.0-47.0); Hemoglobin 12.1 g/dl (12.0-16.0); Mean Corpuscular Hemoglobin 23.8 pg (27.0-33.0); Mean Corpuscular Volume 74.4 fL (80.0-98.0); Mean Platelet Volume 9.1 fL (9.4-12.3); Platelet Count 230 X10*3/uL (160-400); Red Blood Count 5.08 X10*6/uL (4.20-5.50); Red Cell Distribution Width 20.2 % (11.0-16.0); White Blood Count 8.2 X10*3/uL (4.8-10.8)
[2023-11-08 11:03] LABS: Ferritin 13 ng/mL (10-250)
[2023-11-08 11:14] LABS: Folate 12.2 ng/mL (> or = 4.0); Vitamin B12 > 2000 pg/mL (200-900)
== END 2023-11-08 09:15 | disposition home or self-care (01) ==
LOC: HO.LAB 09:14
PROVIDERS: PCP Internal Medicine; Visit Provider Internal Medicine
DX: D64.9 Anemia, unspecified (principal)
CPT/HCPCS: 36415; 82607; 82728; 82746; 85027

== ENCOUNTER 2024-05-08 14:59 | Outpatient (REF) | payer BC, SELFPAY ==
[2024-05-08 16:15] LABS: MANUAL DIFF FLAG NO
[2024-05-08 16:22] LABS: Basophils Percent Auto 0.5 % (0-2); Eosinophils Absolute Auto 0.2 X10*3/uL (0.0-0.4); Eosinophils Percent Auto 5.1 % (0-4); Hematocrit 31.7 % (37.0-47.0); Hemoglobin 9.5 g/dl (12.0-16.0); Imm Gran Abs Auto 0.01 X10*3/uL (0.00-0.03); Imm Gran Pct Auto 0.2 % (0.0-0.4); Lymphocytes Percent Auto 23.7 % (20-40); Mean Corpuscular Hemoglobin 19.9 pg (27.0-33.0); Mean Corpuscular Volume 66.5 fL (80.0-98.0); Mean Platelet Volume 9.1 fL (9.4-12.3); Monocytes Absolute Auto 0.6 X10*3/uL (0.1-1.2); Monocytes Percent Auto 13.3 % (2-11); Neutrophils Absolute Auto 2.4 x10*3/uL (2.0-8.3); Neutrophils Percent Auto 57.2 % (45-73); Platelet Count 200 X10*3/uL (160-400); Red Blood Count 4.77 X10*6/uL (4.20-5.50); Red Cell Distribution Width 17.4 % (11.0-16.0); White Blood Count 4.1 X10*3/uL (4.8-10.8)
[2024-05-08 16:52] LABS: Appearance Urine Clear; Color Urine Yellow; Glucose Urine UA Negative (Negative); Leukocyte Esterase Urine Negative (Negative); Nitrite Urine Negative (Negative); PH 5.5 (5.0-9.0); Specific Gravity - Urine <= 1.005 (1.005-1.025); Urine Blood Negative (Negative); Urine Ketones Negative (Negative); Urine Protein Negative (Neg-Trace)
[2024-05-08 17:15] LABS: Albumin Level 3.9 g/dL (3.5-5.0); Alkaline Phosphatase 87 U/L (39-117); Anion Gap 10 (12-20); Aspartate Amino Transferase 34 U/L (5-31); Bilirubin Total 0.3 mg/dL (0.0-1.0); Blood Urea Nitrogen 7 mg/dL (9-16); Calcium 8.6 mg/dL (8.4-10.2); Carbon Dioxide 25 mmol/L (22-29); Chloride 106 mmol/L (96-108); Cholesterol 131 mg/dL (<200); Estimated Glomerular Filt Rate > 60; Glucose Random 105 mg/dL (60-115); HDL Cholesterol 44 mg/dL (>40); LDL Cholesterol Calculated 70 mg/dL (<100); Potassium 3.7 mmol/L (3.3-5.1); Sodium 137 mmol/L (135-145); Total Protein 7.8 g/dL (6.5-8.0); Triglycerides 85 mg/dL (<150)
[2024-05-08 17:20] LABS: Alanine Aminotransferase 33 U/L (0-31)
[2024-05-08 17:31] LABS: Influenza A PCR POSITIVE (Negative); Influenza B PCR NEGATIVE (Negative); Resp Syncy Virus RNA Qual PCR NEGATIVE (Negative); SARS COV2 PCR INHOUSE NEGATIVE (Negative)
[2024-05-08 17:34] LABS: Free T4 (Free Thyroxine) 0.96 ng/dL (0.71-1.85); TSH reflex Free T4 0.72 uIU/mL (0.32-4.0); Vitamin D 25-OH Total 39.3 ng/mL (>30)
[2024-05-08 17:35] LABS: Folate 9.9 ng/mL (> or = 4.0); Vitamin B12 1169 pg/mL (200-900)
[2024-05-08 17:38] LABS: Creatinine Urine 57.41 mg/dL; Microalbumin Urine < 5.0 mg/L
== END 2024-05-08 15:00 | disposition home or self-care (01) ==
LOC: HO.LAB 14:59
PROVIDERS: PCP Internal Medicine
DX: Z00.00 Encounter for general adult medical examination without abnormal findings (principal); R09.89 Other specified symptoms and signs involving the circulatory and respiratory systems; E78.00 Pure hypercholesterolemia, unspecified; E11.9 Type 2 diabetes mellitus without complications; R35.89 Other polyuria; R05.1 Acute cough; D50.9 Iron deficiency anemia, unspecified
CPT/HCPCS: 0241U; 80053; 80061; 81003; 82043; 82306; 82570; 82607; 82746; 83036; 84439; 84443; 85025

== ENCOUNTER 2024-05-08 14:59 | Outpatient (AMB) | payer BC, SELFPAY ==
--- NOTE | 2024-05-08 15:08 | MHC.PC.OV ---
Vital Signs 05/08/24 15:11 Height 5 ft 2 in Weight 179 lb 2 oz BMI 32.8 BP 120/66 Blood Pressure Location Lt brachial Position Sitting Pulse 104 H Pulse Source Pulse Oximeter Temp 97.3 F Temp Source Skin Pulse Oximetry (%) 98 Oxygen Delivery Method Room Air Intake Visit Reasons: PE Intake Note: Patient is here today for a physical. Complaint of congestion, fever, post nasal drip, bodyache, chills, ear pain. Home covid neg. Microsoft Application Developer Required: No Planning Aide: Not Required per policy Accompanied by: Self / Same As Patient Allergies No Known Allergies Allergy (Verified 05/08/24 15:25) Medication List - Last Reconciled 05/08/24 by Marisabel Bell PA-C ascorbic acid (vitamin C) 500 mg PO .QD ferrous sulfate (Feosol) 325 mg PO DAILY flash glucose scanning reader (UbiterraStyle Aníbal 14 Day Mingo) As directed flash glucose sensor (FreeStyle Aníbal 14 Day Sensor kit) As directed metronidazole 0.75% 1 appl topical DAILY multivitamin 1 tab PO DAILY Tobacco use date assessed: 05/08/24 Dental Screening Dental Screen Date: 05/08/24 Did you have a dental visit in the last 12 months?: Yes Did you have a dental problem in the last 6 months where you did not have access to dental care?: No Was dental information given to patient?: Patient has dentist HPI PE HPI Details 49-year-old female with past medical history of diabetes mellitus, PCOS, hypercholesterolemia, fatty liver disease and iron-deficiency anemia last seen 11/2023 coming in for annual exam. In review of the notes, patient was seen by Hematology/Oncology 11/2023 for iron-deficiency anemia advised to resume oral iron and follow up in 6 months. Patient tells us today she has been having upper respiratory symptoms since last week. Her symptoms began last Wednesday with headache and congestion and worsened over the weekend into sinus pressure, fever and chills. This AM she had a fever of 102 and took tylenol which brought the fever down. She feels her breathing has been okay. [facility] Medical History Screening for colon cancer Hyperplastic colon polyp Mother currently breast-feeding Tinea pedis Impacted cerumen of right ear Cervical cancer screening Annual physical exam Fatty liver Hypercholesterolemia PCOS (polycystic ovarian syndrome) Type 2 diabetes mellitus with hyperglycemia Surgical History Hx of colonoscopy H/O varicose vein ligation and stripping History of section Epidermoid cyst of skin of chest Closed right ankle fracture Hx of cholecystectomy Family History Paternal Grandmother Oral cancer Maternal Grandmother Cervical cancer Social History Household Members: Spouse and Family Housing: House Alcohol intake: current Alcohol intake frequency: a few times a month Patient Tobacco Use Status: Never used Tobacco e-Cigarette/Vaping Use: Never Used Second Hand Smoke Exposure: No service: No Current occupational status: employed Cognitive needs: No Hearing needs: No Vision needs: No Questionnaire PHQ-9 Over the last 2 weeks, how often have you been bothered by any of the following problems? 1. Little interest or pleasure in doing things: not at all 2. Feeling down, depressed, or hopeless: not at all 3. Trouble falling or staying asleep, or sleeping too much: not at all 4. Feeling tired or having little energy: not at all 5. Poor appetite or overeating: not at all 6. Feeling bad about yourself - or that you are a failure or have let yourself or your family down: not at all 7. Trouble concentrating on things, such as reading the newspaper or watching television: not at all 8. Moving or speaking so slowly that other people could have noticed. Or the opposite - being so fidgety or restless that you have been moving around a lot more than usual: not at all 9. Thoughts that you would be better off or of hurting yourself in some way: not at all Total score: 0 Depression Screening Interpretation: Negative Depression Screening Done: Yes Source: Developed by Drs. Abe Irving, Jess Molina, Jayme Peterson and colleagues, with an educational mynor from [employer]. Thrive Questionnaire Date Thrive assessed: 05/08/24 I am a: Patient What is your living situation today?: I have a steady place to live Within the past 12 months, did the food you bought not last and you didn't have the money to get more?: I choose not to answer this question Within the past 12 months, did you worry whether your food would run out before you got money to buy more?: I choose not to answer this question Do you have trouble paying for medicines?: I choose not to answer this question Do you have trouble getting transportation to medical appointments?: I choose not to answer this question Do you have trouble paying your heating and electricity bill?: I choose not to answer this question Do you have trouble taking care of your child, family member or friend?: I choose not to answer this question Do you have trouble with day-to-day activities such as bathing, preparing meals, shopping, managing finances, etc.?: I choose not to answer this question Are you currently unemployed and looking for a job?: I choose not to answer this question Are you interested in more education?: I choose not to answer this question Please select the resources that you would like help with: None Currently or been in a relationship where the following occur: No concerns reported THRIVE Score: 0 AUDIT C Alcohol Use Questionnaire (AUDIT-C) 1. How often do you have a drink containing alcohol?: Never Total Score: 0 MUKESH-7 AMB Questionnaire MUKESH-7 Date MUKESH - 7 assessed: 05/08/24 Feeling nervous, anxious, or on edge: 0 = Not at all Not being able to stop or control worryin = Not at all Worrying too much about different things: 0 = Not at all Trouble relaxin = Not at all Being so restless that it is hard to sit still: 0 = Not at all Becoming easily annoyed or irritable: 0 = Not at all Feeling afraid as if something awful might happen: 0 = Not at all Total MUKESH-7 score (0-4 normal; 5-9 mild; 10-14 moderate; 15-21 severe): 0 Source: Developed by Drs. Abe Irving, Jess Molina, Jayme Peterson and colleagues, with an educational mynor from [employer]. Review of Systems Const Reports body aches, Reports chills, Reports fever(s), Denies headache(s) and Denies poor appetite Eyes Reports no additional complaints ENT Denies dysphagia, Denies dizziness, Denies headache(s) and Denies odynophagia Card Denies chest pain, Denies lightheadedness and Denies dyspnea Resp Reports cough, Denies hemoptysis, Denies excessive phlegm production and Denies dyspnea GI Denies abdominal pain, Denies constipation, Denies dysphagia, Denies diarrhea, Denies nausea, Denies odynophagia and Denies vomiting Reports no additional complaints Musc Reports no additional complaints and Denies abnormal gait Skin/Breast Reports system reviewed and no additional complaints, except as documented Neuro Denies abnormal gait, Denies dizziness and Denies headache(s) Psych Reports no additional complaints Physical exam (Primary Care) Vital Signs: Last Vital Signs Temp 97.3 F 05/08/24 15:11 Pulse 104 H 05/08/24 15:11 BP 120/66 05/08/24 15:11 Pulse Ox 98 05/08/24 15:11 Oxygen Delivery Method Room Air 05/08/24 15:11 BMI result Body Mass Index 32.8 Tobacco/Smoking Status: Tobacco use Status Tobacco use date assessed 05/08/24 05/08/24 15:12 Patient Tobacco Use Status Never used Tobacco 05/08/24 15:12 e-Cigarette/Vaping Use Never Used 05/08/24 15:12 PHQ-9: PHQ-9 Score PHQ-9: Total score 0 05/08/24 15:20 Depression Screening Interpretation: Negative Thrive Assessment: Date of Thrive Assessment Date Thrive assessed 05/08/24 05/08/24 15:12 Currently or been in a relationship where the following occur: No concerns reported Const General: cooperative, healthy appearing, comfortable and no acute distress Orientation/consciousness: patient oriented x3 HENMT Head: Yes normocephalic Ears: hearing grossly normal bilaterally, TM's normal bilaterally and EAC's normal General nose exam: Normal external nose present Face and sinus: Yes sinus tenderness Mouth: Normal oral and palatal mucosa present Throat: Yes posterior oropharynx normal Eyes General: appearance normal, both eyes and all related structures Conjunctivae: conjunctivae normal Neck Neck: Yes full ROM and Yes no lymphadenopathy Resp Effort & Inspection: normal respiratory effort Auscultation: clear to auscultation bilaterally, no crackles, no rales, no rhonchi and no wheezes Cardio Rate: regular rate Rhythm: regular rhythm Skin General skin exam: no rashes or lesions noted Neuro General: patient oriented x3 Gait exam (Neuro): Normal gait present Extrem General: Yes normal to inspection, Yes full ROM and No edema Psych Affect: normal affect Attitude: cooperative Insight: Good insight present (Psych) Judgement: Good judgement present (Psych) Results AMB Hemoglobin A1c AMB Hemoglobin A1c 6.3 % Last Edit by ANDREW Sampson on 05/08/24 15:25 Results Reviewed Results Reviewed: Laboratory Last Values Hgb A1c (Clinic) 6.3 % (4.0-6.0) H 05/08/24 15:08 Coding Level of Care Code Est Pt Level 4 (14601) Diagnoses Iron deficiency anemia D50.9 Obesity (BMI 30.0-34.9) E66.9 Type 2 diabetes mellitus with hyperglycemia E11.65 Hypercholesterolemia E78.00 Fatty liver K76.0 Cough R05.9 Assessment & Plan Assessment & Plan (1) Iron deficiency anemia: Code(s): D50.9 - Iron deficiency anemia, unspecified Category: Medical Plan: Recently seen by Hematology Oncology completed IV iron transfusions advised to continue on oral iron and follow up in 6 months. Seeing hematology in two weeks. (2) Obesity (BMI 30.0-34.9): Code(s): E66.9 - Obesity, unspecified Category: Medical Plan: Healthy diet and regular exercise is encouraged. (3) Type 2 diabetes mellitus with hyperglycemia: Comment: [facility] 02/2022 Code(s): E11.65 - Type 2 diabetes mellitus with hyperglycemia Category: Medical Plan: Decrease the amount of carbohydrates such as pasta, bread, rice, and potatoes and limit the amount of sweets. Although fruits are generally healthy they should be eaten in moderation as they are still high in sugar. Hemoglobin A1c goal of less than 7%. A1c 6.2% today not currently on medical management we will continue to monitor at this time. (4) Hypercholesterolemia: Code(s): E78.00 - Pure hypercholesterolemia, unspecified Category: Medical Plan: Avoid foods that are high in cholesterol such as red meat, fried foods, eggs and baked goods. Triglyceride goal of less than 150 and LDL goal of less than 100. Not currently on medical management. Ordered for updated blood work (5) Fatty liver: Code(s): K76.0 - Fatty (change of) liver, not elsewhere classified Category: Medical Plan: Healthy diet and regular exercise is encouraged. Ordered for updated LFTs (6) Cough: Code(s): R05.9 - Cough, unspecified Category: Medical Plan: Patient complaining of cough, fever, headache and chills since last Wednesday after having worsened over the weekend. She has been using [id number]-[id number] remedies with good relief. Ordered for viral testing for COVID/flu/RSV for further evaluation. Advised patient to use Delsym [id number] for dry cough, Mucinex for productive cough and Sudafed for sinus pressure. I reviewed with patient red flag symptoms and when to present for re-evaluation Plan This note was constructed using voice recognition software. While every effort has been made to ensure accuracy and song plugger, still areas may have been included sometimes these areas may affect the content or meeting of the given symptoms. Total time spent caring for the patient today was 20 minutes. This includes time spent before the visit reviewing the chart, time spent during the visit, and time spent after the visit and documentation. Orders: Orders AMB Hemoglobin A1c Today E11.65 - Type 2 diabetes mellitus with hyperglycemia Comprehensive Met. Panel Today Z00.00 - Encounter for general adult medical examination without abnormal findings Free T4 (Free Thyroxine) Today Z00.00 - Encounter for general adult medical examination without abnormal findings Vitamin D 25-OH Total Today Z00.00 - Encounter for general adult medical examination without abnormal findings Microalbumin, Random (w Creat) Today E11.9 - Type 2 diabetes mellitus without complications UA CC w/rflx Micro + Cult Today R35.89 - Other polyuria SARS-CoV2/FLU/RSV Today R09.89 - Other specified symptoms and signs involving the circulatory and respiratory systems Complete Blood Count Auto Diff Today Z00.00 - Encounter for general adult medical examination without abnormal findings TSH reflex Free T4 Today Z00.00 - Encounter for general adult medical examination without abnormal findings Lipid Panel Today E78.00 - Pure hypercholesterolemia, unspecified Vitamin B12 and Folate Today Z00.00 - Encounter for general adult medical examination without abnormal findings Referrals Medical Weight Management Referral E66.9 - Obesity, unspecified Medications: New blood-glucose meter,continuous (FreeStyle Aníbal 3 Mingo) As directed 1 ea 0RF blood-glucose sensor (FreeStyle Aníbal 3 Sensor device) As directed 1 ea 0RF On Hold flash glucose scanning reader (DineGasmyle Aníbal 14 Day Mingo) Hold Comment: Doctor's Order As directed 1 ea 0RF E11.65 - Type 2 diabetes mellitus with hyperglycemia flash glucose sensor (FreeStyle Aníbal 14 Day Sensor kit) Hold Comment: Doctor's Order As directed 6 kits 3RF E11.65 - Type 2 diabetes mellitus with hyperglycemia
[2024-05-08 15:11] VITALS: BP 120/66; PULSE 104; TEMP 36.3; O2SAT 98; BMI 32.8
== END 2024-05-08 15:43 | disposition home or self-care (01) ==
PROVIDERS: PCP Internal Medicine
DX: E11.65 Type 2 diabetes mellitus with hyperglycemia (principal); D50.9 Iron deficiency anemia, unspecified; E66.9 Obesity, unspecified; Z68.32 Body mass index [BMI] 32.0-32.9, adult; E78.00 Pure hypercholesterolemia, unspecified; K76.0 Fatty (change of) liver, not elsewhere classified; R05.9 Cough, unspecified

== ENCOUNTER → 2024-05-17 09:21 | Outpatient (BNVA) | payer BC, SELFPAY | PROVIDERS: PCP Internal Medicine; Visit Provider Surgery ==

== ENCOUNTER 2024-05-30 08:03 | Outpatient (AMB) | payer BC, SELFPAY ==
--- NOTE | 2024-05-30 10:47 | MHC.OFFVISWM ---
VS Expanded 05/30/24 11:16 Height 5 ft 2 in Weight 180 lb BMI 32.9 Body Fat % 35.9 Body Fat Mass 64.6 Fat Free Mass 115.4 Visceral Fat Rating 8 Body Water % 45.7 Body Water Mass 82.2 Basal Metabolic Rate/Score 1,570 Intake Visit Reasons: [employer] MWL Allergies No Known Allergies Allergy (Verified 05/30/24 10:47) Medication List - Last Reconciled 05/30/24 by Zenon Huang MD ascorbic acid (vitamin C) 500 mg PO .QD blood-glucose meter,continuous (FreeStyle Aníbal 3 [place]) As directed blood-glucose sensor (FreeStyle Aníbal 3 Sensor device) As directed ferrous sulfate (Feosol) 325 mg PO DAILY flash glucose scanning reader (FreeStyle Aníbal 14 Day [place]) As directed flash glucose sensor (FreeStyle Aníbal 14 Day Sensor kit) As directed metronidazole 0.75% 1 appl topical DAILY multivitamin 1 tab PO DAILY HPI HPI [employer] MWL: Details: Start time: 10.41am, End time: 11.26am ?I spent 45 minutes speaking with the patient on the phone plus an additional 5 minutes reviewing and updating records for a total of 45 minutes HPI Comments Details: Previous weight loss efforts: AMANDO Simon, [place] (1mth: 7lbs, could not afford it), intermittent fasting Wakes up: 7am, Sleeps: 11pm Breakfast: 10am (sandwich) Lunch: 3-4pm (tuna fish with crackers) Dinner: 7-8pm (rice, meat, vegetables) Snacks: 1pm (banana) Exercise: Has a home treadmill Fluids: Coffee: 2 cups (black), tea: 1 cup/day (Splenda), soda: Coke Zero, juice: none, ETOH: none PFSH Medical History (Updated 05/30/24 @ 11:20 by Zenon Huang MD) BMI 32.0-32.9,adult Obesity Screening for colon cancer Hyperplastic colon polyp Mother currently breast-feeding Tinea pedis Impacted cerumen of right ear Cervical cancer screening Annual physical exam Fatty liver Hypercholesterolemia PCOS (polycystic ovarian syndrome) Type 2 diabetes mellitus with hyperglycemia Surgical History Hx of colonoscopy H/O varicose vein ligation and stripping History of section Epidermoid cyst of skin of chest Closed right ankle fracture Hx of cholecystectomy Family History (Updated 05/17/24 @ 10:05 by Lashell Montoya CMA) Paternal Grandmother Oral cancer Maternal Grandmother Cervical cancer Mother Breast cancer Anemia Father Diabetes Daughter No problems noted. Son No problems noted. Social History Household Members: Spouse and Family Housing: House Alcohol intake: current Alcohol intake frequency: a few times a month Patient Tobacco Use Status: Never used Tobacco e-Cigarette/Vaping Use: Never Used Second Hand Smoke Exposure: No service: No Current occupational status: employed Cognitive needs: No Hearing needs: No Vision needs: No Telehealth Telehealth Telehealth Platform: Telephone Location of provider rendering services: practice address Location of patient: address on file Patient Identification confirmed using: Name, : Yes Telehealth method: voice only Patient verbally consented to treatment: Yes Patient verbally consented to billing insurance company: Yes Patient informed of any privacy concerns related to visit: Yes Minutes spent on Phone/Video with Pt.: 45 Assessment & Plan Assessment & Plan (1) Obesity: Code(s): E66.9 - Obesity, unspecified Category: Medical Qualifiers: Obesity type: due to excess calories Obesity classification: adult class 1 (BMI 30 - 34.9) Serious obesity comorbidity presence: with serious comorbidity Body mass index: BMI 32.0-32.9 Qualified Code(s): E66.811 - Obesity, class 1; E66.09 - Other obesity due to excess calories; Z68.32 - Body mass index [BMI] 32.0-32.9, adult Plan: 1. Take the Phentermine daily at 10am. We discussed the potential side-effects of the Phentermine such as irritability, dry mouth, difficulty sleeping, dizziness, numbness in feet and high blood pressure. I asked her to get a blood pressure monitor and measure the blood pressure daily in the morning and evening. She needs to send me the blood pressure readings daily and to call the office for blood pressure over 140/80 and she understands that. 2. You will receive a link of our software dylan to generate an individualized nutritional and exercise plan specific for you. Please send me a screenshot of the plans you will generate Meal to include lean meat (beef, fish, pork, turkey, chicken), or indonesian yogurt, or egg whites, or beans with a salad with olive oil and fruits (berries, pears, apples, kiwi). Avoid salt, breads, potatoes, rice, pasta, desserts. ?3. If you choose shakes, each shake would be drunk slowly, like coffee in a period of 2 hours. ?4. If you choose bars, cut each bar in 4 pieces and eat each piece in 30min ?to make each bar last 2 hours. ?5. I emphasized the importance of measuring accurately the food portion and measure it when serving the food in plate ?6. The meal portions include a specific number of forks of meat and salad. You always eat the meat portion but you can replace up to half of salad/vegetables portion with rice, potatoes or pasta, or a fruit ?if you like. The less you do it the better weight loss will be. ?7. One full-size fork is what it can be scooped on the fork without falling aside and not what can be bit with the fork. Use regular forks like those you find in a typical restaurant. ?8.? Please buy the body composition scale we discussed and send me weight measurements as soon as possible and then once a week. Always include your diet and exercise plan. 9. The best choice would be to purchase a stationary bike, elliptical or treadmill at home that can track calories. Let me know if you do so I can give you an exercise plan. ?10.?It is important of avoiding and for at least 18 months postoperatively and has been discussed at the infosession. ?11. Goal is to lose at least 1.5-2lbs per week ?12. Goal to lose 10% of your weight, which is about 20lbs. Minimum weight goal: 160lbs 13. Please follow the diet plan exactly without any change. If you don't like something about the plan or you feel hungry you need to communicate with me so I can help you revise the plan. You should not change the plan yourself. Medications: New phentermine must administer 30 minutes before or 1-2 hours after breakfast 37.5 mg PO DAILY 30 caps 0RF E66.9 - Obesity, unspecified
[2024-05-30 11:16] VITALS: BMI 32.9
== END 2024-05-30 11:26 | disposition home or self-care (01) ==
LOC: HO.HBS 08:03
PROVIDERS: PCP Internal Medicine; Visit Provider Surgery
DX: E66.811 Obesity, class 1 (principal); Z68.32 Body mass index [BMI] 32.0-32.9, adult
CPT/HCPCS: 98016

== ENCOUNTER → 2024-05-30 08:03 | Outpatient (BNVA) | payer BC, SELFPAY | PROVIDERS: PCP Internal Medicine; Visit Provider Surgery ==

== ENCOUNTER 2024-06-05 09:57 | Outpatient (REF) | payer BC, SELFPAY ==
[2024-06-05 11:09] LABS: MANUAL DIFF FLAG NO
[2024-06-05 11:55] LABS: Basophils Absolute Auto 0.1 X10*3/uL (0.0-0.2); Basophils Percent Auto 0.7 % (0-2); Eosinophils Absolute Auto 0.2 X10*3/uL (0.0-0.4); Eosinophils Percent Auto 2.1 % (0-4); Hematocrit 31.8 % (37.0-47.0); Hemoglobin 9.1 g/dl (12.0-16.0); Imm Gran Abs Auto 0.17 X10*3/uL (0.00-0.03); Imm Gran Pct Auto 1.8 % (0.0-0.4); Lymphocytes Absolute Auto 2.3 X10*3/uL (1.2-4.9); Lymphocytes Percent Auto 23.8 % (20-40); Mean Corpuscular HGB Conc 28.6 g/dl (31.0-35.0); Mean Corpuscular Volume 66.5 fL (80.0-98.0); Mean Platelet Volume 10.2 fL (9.4-12.3); Monocytes Absolute Auto 0.8 X10*3/uL (0.1-1.2); Monocytes Percent Auto 8.2 % (2-11); NRBC Pct Auto 0.2 /100WBC (0.0-0.2); Neutrophils Percent Auto 63.4 % (45-73); Platelet Count 316 X10*3/uL (160-400); Red Blood Count 4.78 X10*6/uL (4.20-5.50); Red Cell Distribution Width 19.1 % (11.0-16.0); White Blood Count 9.5 X10*3/uL (4.8-10.8)
[2024-06-05 12:32] LABS: Iron 13 mcg/dL (30-160); Percent Iron Saturation 3 % (15-50); Total Iron Binding Capacity 426 mcg/dL (228-428); Unsaturated Iron Binding 413 ug/dL
[2024-06-06 08:04] LABS: HBS Num1 316.52 mIU/mL (0-7.99); HBc Num1 0.12 S/CO (0.00-0.79); Hepatitis B Core Antibody Nonreactive (Nonreactive); Hepatitis B Surface Antigen Negative (Negative); ~HepC Num1 0.12 S/CO (0.00-0.79); ~Hepatitis B Surface Antibody REACTIVE (Nonreactive); ~Hepatitis C Antibody Nonreactive (Nonreactive)
== END 2024-06-05 09:58 | disposition home or self-care (01) ==
LOC: HO.LAB 09:57
PROVIDERS: PCP Internal Medicine
DX: Z00.00 Encounter for general adult medical examination without abnormal findings (principal); D50.9 Iron deficiency anemia, unspecified; K64.9 Unspecified hemorrhoids; I83.11 Varicose veins of right lower extremity with inflammation; I83.12 Varicose veins of left lower extremity with inflammation; K76.0 Fatty (change of) liver, not elsewhere classified; E78.00 Pure hypercholesterolemia, unspecified; E28.2 Polycystic ovarian syndrome; E11.65 Type 2 diabetes mellitus with hyperglycemia; N92.0 Excessive and frequent menstruation with regular cycle
CPT/HCPCS: 36415; 83540; 85025; 86704; 86706; 86803; 87340; 96127

== ENCOUNTER 2024-06-05 09:57 | Outpatient (AMB) | payer BC, SELFPAY ==
[2024-06-05 09:58] VITALS: BP 120/66; PULSE 80; TEMP 36.2; O2SAT 99; BMI 33.6
--- NOTE | 2024-06-05 09:58 | A.OFFPC_ITS ---
Vital Signs 06/05/24 09:58 Height 5 ft 2 in Weight 183 lb 8 oz BMI 33.6 BP 120/66 Blood Pressure Location Lt brachial Position Sitting Pulse 80 Pulse Source Pulse Oximeter Temp 97.1 F Temp Source Temporal Artery Scan Pulse Oximetry (%) 99 Oxygen Delivery Method Room Air Intake Visit Reasons: Annual exam Video Production Assistant Required: No Brake Rider: Present Accompanied by: Spouse Allergies No Known Allergies Allergy (Verified 06/05/24 10:11) Medication List - Last Reconciled 06/05/24 by Marisabel Bell PA-C ascorbic acid (vitamin C) 500 mg PO .QD blood-glucose meter,continuous (FreeStyle Aníbal 3 [place]) As directed blood-glucose sensor (FreeStyle Aníbal 3 Sensor device) As directed ferrous sulfate (Feosol) 325 mg PO DAILY flash glucose scanning reader (FreeStyle Aníbal 14 Day [place]) As directed flash glucose sensor (FreeStyle Aníbal 14 Day Sensor kit) As directed metronidazole 0.75% 1 appl topical DAILY multivitamin 1 tab PO DAILY phentermine 37.5 mg PO DAILY Tobacco use date assessed: 06/05/24 Dental Screening Dental Screen Date: 06/05/24 Did you have a dental visit in the last 12 months?: Yes Did you have a dental problem in the last 6 months where you did not have access to dental care?: No Was dental information given to patient?: Patient has dentist HPI Annual exam HPI Details 49-year-old female with past medical his tory of diabetes mellitus, PCOS, hypercholesterolemia, fatty liver disease, iron deficiency anemia last seen 05/2024 coming in for annual exam. In review of the notes, patient was seen by weight management clinic started on phentermine. Presenting for an annual physical examination. Reports recovering well from influenza, previously mentioned as causing severe symptoms. Anemia history with hemoglobin levels dropping to 9.5, likely from anemia associated with heavy menstrual bleeding. Constipation occurs every 2-3 days causing abdominal pain, with suggested increases in dietary fiber and hydration. Heavy menstrual cycles reported, using bladder pads due to volume severity, raising concerns regarding its contribution to anemia. Colonoscopy: 06/2024 repeat in 5 years Mammogram: 12/2022 overdue order placed. Pap smear: last 2021 due for pap smear Vaccines: UTD on Td, overdue on Flu declined today [facility] Medical History BMI 32.0-32.9,adult Obesity Screening for colon cancer Hyperplastic colon polyp Mother currently breast-feeding Tinea pedis Impacted cerumen of right ear Cervical cancer screening Annual physical exam Fatty liver Hypercholesterolemia PCOS (polycystic ovarian syndrome) Type 2 diabetes mellitus with hyperglycemia Surgical History Hx of colonoscopy H/O varicose vein ligation and stripping History of section Epidermoid cyst of skin of chest Closed right ankle fracture Hx of cholecystectomy Family History Paternal Grandmother Oral cancer Maternal Grandmother Cervical cancer Mother Breast cancer Anemia Father Diabetes Daughter No problems noted. Son No problems noted. Social History Household Members: Spouse and Family Housing: House Alcohol intake: current Alcohol intake frequency: a few times a month Patient Tobacco Use Status: Never used Tobacco e-Cigarette/Vaping Use: Never Used Second Hand Smoke Exposure: No service: No Current occupational status: employed Cognitive needs: No Hearing needs: No Vision needs: No Questionnaire PHQ-9 Over the last 2 weeks, how often have you been bothered by any of the following problems? 1. Little interest or pleasure in doing things: not at all 2. Feeling down, depressed, or hopeless: not at all 3. Trouble falling or staying asleep, or sleeping too much: not at all 4. Feeling tired or having little energy: not at all 5. Poor appetite or overeating: not at all 6. Feeling bad about yourself - or that you are a failure or have let yourself or your family down: not at all 7. Trouble concentrating on things, such as reading the newspaper or watching television: not at all 8. Moving or speaking so slowly that other people could have noticed. Or the opposite - being so fidgety or restless that you have been moving around a lot more than usual: not at all 9. Thoughts that you would be better off or of hurting yourself in some way: not at all Total score: 0 Depression Screening Interpretation: Negative Depression Screening Done: Yes Source: Developed by Drs. Abe Irving, Jess Molina, Jayme Peterson and colleagues, with an educational mynor from [employer]. Thrive Questionnaire Date Thrive assessed: 06/05/24 I am a: Patient What is your living situation today?: I have a steady place to live Within the past 12 months, did the food you bought not last and you didn't have the money to get more?: I choose not to answer this question Within the past 12 months, did you worry whether your food would run out before you got money to buy more?: I choose not to answer this question Do you have trouble paying for medicines?: I choose not to answer this question Do you have trouble getting transportation to medical appointments?: I choose not to answer this question Do you have trouble paying your heating and electricity bill?: I choose not to answer this question Do you have trouble taking care of your child, family member or friend?: I choose not to answer this question Do you have trouble with day-to-day activities such as bathing, preparing meals, shopping, managing finances, etc.?: I choose not to answer this question Are you currently unemployed and looking for a job?: I choose not to answer this question Are you interested in more education?: I choose not to answer this question Please select the resources that you would like help with: None Currently or been in a relationship where the following occur: No concerns reported THRIVE Score: 0 AUDIT C Alcohol Use Questionnaire (AUDIT-C) 1. How often do you have a drink containing alcohol?: Never 3. How often do you have six or more drinks on one occasion?: Never Total Score: 0 MUKESH-7 AMB Questionnaire MUKESH-7 Date MUKESH - 7 assessed: 06/05/24 Feeling nervous, anxious, or on edge: 0 = Not at all Not being able to stop or control worryin = Not at all Worrying too much about different things: 0 = Not at all Trouble relaxin = Not at all Being so restless that it is hard to sit still: 0 = Not at all Becoming easily annoyed or irritable: 0 = Not at all Feeling afraid as if something awful might happen: 0 = Not at all Total MUKESH-7 score (0-4 normal; 5-9 mild; 10-14 moderate; 15-21 severe): 0 Source: Developed by Drs. Abe Irving, Jess Molina, Jayme Peterson and colleagues, with an educational mynor from [employer]. Review of Systems Const Denies body aches, Denies fatigue, Denies fever(s), Denies frequent falls, Denies headache(s) and Denies weakness Eyes Reports no additional complaints and Denies change in vision ENT Denies dysphagia, Denies dizziness, Denies facial pain, Denies headache(s), Denies nasal congestion and Denies odynophagia Card Denies chest pain, Denies syncope, Denies irregular heart rhythm, Denies leg edema, Denies lightheadedness and Denies dyspnea Resp Denies cough and Denies dyspnea GI Denies abdominal pain, Denies melena, Denies hematochezia, Reports constipation, Denies dysphagia, Denies dyspepsia, Denies diarrhea, Denies nausea, Denies odynophagia, Denies vomiting and Denies hematemesis Details: heavy menses Denies urinary frequency, Denies dysuria, Denies urinary hesitancy and Denies urinary urgency Musc Denies back pain and Denies myalgias Skin/Breast Reports system reviewed and no additional complaints, except as documented Neuro Denies dizziness, Denies syncope, Denies frequent falls, Denies headache(s) and Denies weakness Psych Reports no additional complaints Endo Denies fatigue Physical exam (Primary Care) Vital Signs: Last Vital Signs Temp 97.1 F 06/05/24 09:58 Pulse 80 06/05/24 09:58 BP 120/66 06/05/24 09:58 Pulse Ox 99 06/05/24 09:58 Oxygen Delivery Method Room Air 06/05/24 09:58 BMI result Body Mass Index 33.6 Tobacco/Smoking Status: Tobacco use Status Tobacco use date assessed 06/05/24 06/05/24 10:02 Patient Tobacco Use Status Never used Tobacco 06/05/24 10:02 e-Cigarette/Vaping Use Never Used 06/05/24 10:02 PHQ-9: PHQ-9 Score PHQ-9: Total score 0 06/05/24 10:06 Depression Screening Interpretation: Negative Thrive Assessment: Date of Thrive Assessment Date Thrive assessed 06/05/24 06/05/24 10:02 Currently or been in a relationship where the following occur: No concerns reported Const General: cooperative, healthy appearing, comfortable and no acute distress Orientation/consciousness: patient oriented x3 HENMT Head: Yes normocephalic Ears: hearing grossly normal bilaterally, external ears normal, TM's normal bilaterally and EAC's normal General nose exam: Normal external nose present Face and sinus: Yes normal facial exam and Yes sinuses nontender Mouth: Normal oral and palatal mucosa present and tongue normal Throat: Yes posterior oropharynx normal Eyes General: appearance normal, both eyes and all related structures Conjunctivae: conjunctivae normal Pupils: Equal, round and reactive pupils present EOM: EOMs intact bilaterally and No Nystagmus present Neck Neck: Yes normal visual inspection, Yes full ROM and Yes no lymphadenopathy Chest Chest palpation & inspection: normal inspection of the chest Resp Effort & Inspection: normal respiratory effort Auscultation: clear to auscultation bilaterally, no crackles, no rales, no rhonchi, no wheezes and breath sounds present Cardio Rate: regular rate Rhythm: regular rhythm Peripheral pulses: radial pulses present and dorsalis pedis present GI Inspection: Yes normal to inspection and No Abdominal wall edema Palpation (GI): Soft to palpation, not firm and nontender Auscultation: normal bowel sounds Rectal Exam - Female: deferred General: Yes no CVA tenderness Back/Spine/Pelvis Back: no CVA tenderness Skin General skin exam: no rashes or lesions noted Neuro General: patient oriented x3 Cranial nerves: Yes Equal, round and reactive pupils present, Yes Midline tongue present, Yes Ability to bilaterally elevate shoulders present and No Nystagmus present Gait exam (Neuro): Normal gait present Extrem General: Yes normal to inspection, Yes full ROM, No no pedal edema and No edema Psych Speech and movement: Normal speech and movement present Affect: normal affect Insight: Good insight present (Psych) Judgement: Good judgement present (Psych) Coding Level of Care Code Est Pt Prev Care 40-64y(31242) Diagnoses BMI 32.0-32.9,adult Z68.32 Iron deficiency anemia D50.9 Hemorrhoids K64.9 Varicose veins of right lower extremity with inflammation I83.11 Varicose veins of left lower extremity with inflammation I83.12 Annual physical exam Z00.00 Fatty liver K76.0 Hypercholesterolemia E78.00 PCOS (polycystic ovarian syndrome) E28.2 Type 2 diabetes mellitus with hyperglycemia E11.65 Heavy menses N92.0 Assessment & Plan Assessment & Plan (1) BMI 32.0-32.9,adult: Code(s): Z68.32 - Body mass index [BMI] 32.0-32.9, adult Category: Medical Plan: Healthy diet and regular exercise is encouraged. Recently started on phentermine by weight management clinic. Continue to follow with weight management (2) Iron deficiency anemia: Code(s): D50.9 - Iron deficiency anemia, unspecified Category: Medical Plan: Re-assess the patient's hemoglobin levels to evaluate her anemia status, believed to be aggravated by heavy menstrual bleeding, and facilitate a gynecological consultation for potential hormonal treatment options. (3) Hemorrhoids: Code(s): K64.9 - Unspecified hemorrhoids Category: Medical Plan: Avoid constipation and increase water and fiber intake. (4) Varicose veins of right lower extremity with inflammation: Comment: 06/04/2023 - right great saphenous vein radiofrequency ablation Code(s): I83.11 - Varicose veins of right lower extremity with inflammation Category: Medical Plan: No longer following with vascular surgery status post ablation. Advised compression stockings, elevation of legs and exercise as tolerated. (5) Varicose veins of left lower extremity with inflammation: Comment: 07/09/2023 - left leg microphlebectomy Code(s): I83.12 - Varicose veins of left lower extremity with inflammation Category: Medical Plan: No longer following with vascular surgery status post ablation. Advised compression stockings, elevation of legs and exercise as tolerated. (6) Annual physical exam: Code(s): Z00.00 - Encounter for general adult medical examination without abnormal findings Category: Medical Plan: Patient is up-to-date on all recommended routine vaccinations for her age. She is overdue on mammogram and Pap smear. Referral placed for both. Blood work is up-to-date. Plan to follow up in 3 months for her diabetes (7) Fatty liver: Code(s): K76.0 - Fatty (change of) liver, not elsewhere classified Category: Medical Plan: Healthy diet and regular exercise is encouraged. Continue to monitor LFTs (8) Hypercholesterolemia: Code(s): E78.00 - Pure hypercholesterolemia, unspecified Category: Medical Plan: Avoid foods that are high in cholesterol such as red meat, fried foods, eggs and baked goods. Triglyceride goal of less than 150 and LDL goal of less than 100. Not currently on medical management. (9) PCOS (polycystic ovarian syndrome): Code(s): E28.2 - Polycystic ovarian syndrome Category: Medical Plan: Continue to follow with gynecology. (10) Type 2 diabetes mellitus with hyperglycemia: Comment: [facility] 02/2022 Code(s): E11.65 - Type 2 diabetes mellitus with hyperglycemia Category: Medical Plan: Decrease the amount of carbohydrates such as pasta, bread, rice, and potatoes and limit the amount of sweets. Although fruits are generally healthy they should be eaten in moderation as they are still high in sugar. Hemoglobin A1c goal of less than 7%. Last A1c 6.3% (11) Heavy menses: Code(s): N92.0 - Excessive and frequent menstruation with regular cycle Category: Medical Plan: Likely contributing to her iron-deficiency anemia. Continue on oral iron and referral placed to gynecology. Discussed at this visit possible hormone replacement therapy follow up with gynecology. Plan Patient was informed and verbally consented to the use of an ambient scribe for clinic note documentation during this visit. This note was constructed using voice recognition software. While every effort has been made to ensure accuracy and human resources services specialist, still areas may have been included sometimes these areas may affect the content or meeting of the given symptoms. Total time spent caring for the patient today was 30 minutes. This i ncludes time spent before the visit reviewing the chart, time spent during the visit, and time spent after the visit and documentation. Orders: Orders MM tomosynthesis screening BI Today Z12.31 - Encounter for screening mammogram for malignant neoplasm of breast IRON PROFILE Today D50.9 - Iron deficiency anemia, unspecified Complete Blood Count Auto Diff Today D50.9 - Iron deficiency anemia, unspecified, Z00.00 - Encounter for general adult medical examination without abnormal findings Referrals OIL DIPPER Referral E28.2 - Polycystic ovarian syndrome, Z00.00 - Encounter for general adult medical examination without abnormal findings
== END 2024-06-05 10:35 | disposition home or self-care (01) ==
PROVIDERS: PCP Internal Medicine
DX: Z00.00 Encounter for general adult medical examination without abnormal findings (principal); E11.65 Type 2 diabetes mellitus with hyperglycemia; Z68.32 Body mass index [BMI] 32.0-32.9, adult; D50.9 Iron deficiency anemia, unspecified; K64.9 Unspecified hemorrhoids; I83.11 Varicose veins of right lower extremity with inflammation; I83.12 Varicose veins of left lower extremity with inflammation; K76.0 Fatty (change of) liver, not elsewhere classified; E78.00 Pure hypercholesterolemia, unspecified; E28.2 Polycystic ovarian syndrome; N92.0 Excessive and frequent menstruation with regular cycle

== ENCOUNTER 2025-01-02 10:17 | Outpatient (AMB) | payer BC, SELFPAY ==
[2025-01-02 10:21] VITALS: BP 114/72; PULSE 86; TEMP 36.2; O2SAT 100; BMI 34.1
--- NOTE | 2025-01-02 10:21 | A.OFFPC_ITS ---
Vital Signs 01/02/25 10:21 Height 5 ft 2 in Weight 186 lb 4 oz BMI 34.1 BP 114/72 Blood Pressure Location Lt brachial Position Sitting Pulse 86 Pulse Source Pulse Oximeter Temp 97.1 F Temp Source Temporal Artery Scan Pulse Oximetry (%) 100 Oxygen Delivery Method Room Air Intake Visit Reasons: f/u DM w/ Po Allergies No Known Allergies Allergy (Verified 01/02/25 10:24) Medication List - Last Reconciled 01/02/25 by Sumit Oliveira MD ascorbic acid (vitamin C) 500 mg PO .QD blood-glucose sensor (FreeStyle Aníbal 3 Plus Sensor device) 1 ea miscellaneous Q2W blood-glucose,frame table operator helper,cont (FreeStyle Aníbal 3 Schriever) As directed ferrous sulfate (Feosol) 325 mg PO DAILY flash glucose scanning reader (FreeStyle Aníbal 14 Day Schriever) As directed Held on 05/08/24. Instructions: Doctor's Order flash glucose sensor (FreeStyle Aníbal 14 Day Sensor kit) As directed Held on 05/08/24. Instructions: Doctor's Order metronidazole 0.75% 1 appl topical DAILY multivitamin 1 tab PO DAILY Tobacco use date assessed: 01/02/25 Dental Screening Dental Screen Date: 01/02/25 Did you have a dental visit in the last 12 months?: Yes Did you have a dental problem in the last 6 months where you did not have access to dental care?: No Was dental information given to patient?: Patient has dentist [facility] Medical History (Updated 01/02/25 @ 10:51 by Sumit Oliveira MD) Anemia BMI 32.0-32.9,adult Obesity Screening for colon cancer Hyperplastic colon polyp Mother currently breast-feeding Tinea pedis Impacted cerumen of right ear Cervical cancer screening Annual physical exam Fatty liver Hypercholesterolemia PCOS (polycystic ovarian syndrome) Type 2 diabetes mellitus with hyperglycemia Surgical History Hx of colonoscopy H/O varicose vein ligation and stripping History of section Epidermoid cyst of skin of chest Closed right ankle fracture Hx of cholecystectomy Family History Paternal Grandmother Oral cancer Maternal Grandmother Cervical cancer Mother Breast cancer Anemia Father Diabetes Daughter No problems noted. Son No problems noted. Social History Household Members: Spouse and Family Housing: House Alcohol intake: current Alcohol intake frequency: a few times a month Patient Tobacco Use Status: Never used Tobacco e-Cigarette/Vaping Use: Never Used Second Hand Smoke Exposure: No service: No Current occupational status: employed Cognitive needs: No Hearing needs: No Vision needs: No Questionnaire PHQ-9 Over the last 2 weeks, how often have you been bothered by any of the following problems? 1. Little interest or pleasure in doing things: not at all 2. Feeling down, depressed, or hopeless: not at all 3. Trouble falling or staying asleep, or sleeping too much: not at all 4. Feeling tired or having little energy: not at all 5. Poor appetite or overeating: not at all 6. Feeling bad about yourself - or that you are a failure or have let yourself or your family down: not at all 7. Trouble concentrating on things, such as reading the newspaper or watching television: not at all 8. Moving or speaking so slowly that other people could have noticed. Or the opposite - being so fidgety or restless that you have been moving around a lot more than usual: not at all 9. Thoughts that you would be better off or of hurting yourself in some way: not at all Total score: 0 Depression Screening Interpretation: Negative Depression Screening Done: Yes Source: Developed by Drs. Abe Irving, Jess Molina, Jayme Peterson and colleagues, with an educational mynor from [email or web address]. Thrive Questionnaire Date Thrive assessed: 05/08/24 I am a: Patient What is your living situation today?: I have a steady place to live Within the past 12 months, did the food you bought not last and you didn't have the money to get more?: I choose not to answer this question Within the past 12 months, did you worry whether your food would run out before you got money to buy more?: I choose not to answer this question Do you have trouble paying for medicines?: I choose not to answer this question Do you have trouble getting transportation to medical appointments?: I choose no t to answer this question Do you have trouble paying your heating and electricity bill?: I choose not to answer this question Do you have trouble taking care of your child, family member or friend?: I choose not to answer this question Do you have trouble with day-to-day activities such as bathing, preparing meals, shopping, managing finances, etc.?: I choose not to answer this question Are you currently unemployed and looking for a job?: I choose not to answer this question Are you interested in more education?: I choose not to answer this question Please select the resources that you would like help with: None Currently or been in a relationship where the following occur: No concerns reported THRIVE Score: 0 AUDIT C Alcohol Use Questionnaire (AUDIT-C) 1. How often do you have a drink containing alcohol?: Never 3. How often do you have six or more drinks on one occasion?: Never Total Score: 0 MUKESH-7 AMB Questionnaire MUKESH-7 Date MUKESH - 7 assessed: 06/05/24 Feeling nervous, anxious, or on edge: 0 = Not at all Not being able to stop or control worryin = Not at all Worrying too much about different things: 0 = Not at all Trouble relaxin = Not at all Being so restless that it is hard to sit still: 0 = Not at all Becoming easily annoyed or irritable: 0 = Not at all Feeling afraid as if something awful might happen: 0 = Not at all Total MUKESH-7 score (0-4 normal; 5-9 mild; 10-14 moderate; 15-21 severe): 0 Source: Developed by Drs. Abe Irving, Jess Molina, Jayme Peterson and colleagues, with an educational mynor from [email or web address]. Physical exam (Primary Care) Vital Signs: Last Vital Signs Temp 97.1 F 01/02/25 10:21 Pulse 86 01/02/25 10:21 BP 114/72 01/02/25 10:21 Pulse Ox 100 01/02/25 10:21 Oxygen Delivery Method Room Air 01/02/25 10:21 BMI result Body Mass Index 34.1 Tobacco/Smoking Status: Tobacco use Status Tobacco use date assessed 01/02/25 01/02/25 10:25 Patient Tobacco Use Status Never used Tobacco 01/02/25 10:25 e-Cigarette/Vaping Use Never Used 01/02/25 10:25 PHQ-9: PHQ-9 Score PHQ-9: Total score 0 01/02/25 10:44 Depression Screening Interpretation: Negative Thrive Assessment: Date of Thrive Assessment Date Thrive assessed 05/08/24 01/02/25 10:25 Currently or been in a relationship where the following occur: No concerns reported Const General: alert; No acute distress Eyes Conjunctivae: conjunctivae normal Resp Auscultation: clear to auscultation bilaterally Cardio Rate: regular rate Rhythm: regular rhythm GI Inspection: Yes normal to inspection Extrem General: Yes normal to inspection and No edema Results AMB Hemoglobin A1c AMB Hemoglobin A1c 8.8 % Last Edit by Taylor Cohen CMA on 01/02/25 10:29 Results Reviewed Results Reviewed: Laboratory Last Values Hgb A1c (Clinic) 8.8 % (4.0-6.0) H 01/02/25 10:25 Coding Level of Care Code Est Pt Level 4 (77556) Complex EM visit Add On G2211 Diagnoses Type 2 diabetes mellitus with hyperglycemia E11.65 Obesity (BMI 30.0-34.9) E66.9 Hypercholesterolemia E78.00 Fatty liver K76.0 Iron deficiency anemia D50.9 Attention deficit R41.840 Breast cancer screening by mammogram Z12.31 Assessment & Plan Assessment & Plan (1) Type 2 diabetes mellitus with hyperglycemia: Comment: [facility] 02/2022 Code(s): E11.65 - Type 2 diabetes mellitus with hyperglycemia Category: Medical Plan: Decrease the amount of carbohydrate intake, pasta, bread, rice and potatoes are all sugar and that is aside from all the sweet stuff, remember that fruits are good but they are Sweet also. Hemoglobin A1c goal of less than 6.5. Patient is not on any medication (2) Obesity (BMI 30.0-34.9): Code(s): E66.9 - Obesity, unspecified Category: Medical Plan: Diet and exercise (3) Hypercholesterolemia: Code(s): E78.00 - Pure hypercholesterolemia, unspecified Category: Medical Plan: Avoid fried foods, chicken skin, eggs, butter margarine, pastries and meat. Be it pork or beef they have a lot of cholesterol LDL goal of less than 100 and triglyceride of less than 150. Patient had blood work earlier this year May and is at goal (4) Fatty liver: Code(s): K76.0 - Fatty (change of) liver, not elsewhere classified Category: Medical Plan: Low-fat diet and exercise patient needs to lose weight (5) Iron deficiency anemia: Code(s): D50.9 - Iron deficiency anemia, unspecified Category: Medical Plan: Patient has been placed on iron from the blood work in June patient needs a repeat blood work (6) Attention deficit: Code(s): R41.840 - Attention and concentration deficit Category: Medical (7) Breast cancer screening by mammogram: Code(s): Z12.31 - Encounter for screening mammogram for malignant neoplasm of breast Category: Medical Plan History of Present Illness The patient is a 49-year-old female presenting for a follow-up visit. She has a history of diabetes mellitus, hypercholesterolemia, and fatty liver disease. Her last colonoscopy was performed in June 2023, and her blood work in June 2024 revealed anemia with hemoglobin levels at 9.1 g/dL and hematocrit at 31.8%, indicating microcytic anemia. The patient has iron deficiency anemia and has been placed on iron supplements following the June blood work. Her blood sugar levels were recorded as fasting glucose of 105 mg/dL in May, but her hemoglobin A1c is currently 8.8%, indicating poor glycemic control. Her LDL cholesterol is well-controlled at 70 mg/dL, and other parameters such as B12, vitamin D, folic acid, and thyroid function are within normal limits. Health Maintenance - Colonoscopy performed in June 2023 - Blood work in June 2024 showed anemia - LDL cholesterol at goal with a level of 70 mg/dL - B12, vitamin D, folic acid, and thyroid function within normal limits Social History - Patient uses a continuous glucose monitor (Aníbal) and requires a prescription refill for sensors. Review of Systems Physical Exam Results - Labs: Hemoglobin 9.1 g/dL, Hematocrit 31.8%, Microcytic anemia, Platelet count 316 x 10^9/L - Labs: Fasting glucose 105 mg/dL, Hemoglobin A1c 8.8% - Labs: LDL cholesterol 70 mg/dL, B12, vitamin D, folic acid, and thyroid function within normal limits Plan Patient was informed and verbally consented to the use of an ambient scribe for clinic note documentation during this visit. 1. Diabetes Mellitus The patient has diabetes mellitus with a current hemoglobin A1c of 8.8%, indicating suboptimal glycemic control. The goal is to achieve an A1c of less than 6.5% through diet and exercise, as the patient is not currently on medication. The patient uses a continuous glucose monitor and requires a prescription refill for sensors. 2. Hypercholesterolemia The patient's LDL cholesterol is well-controlled at 70 mg/dL, with a goal of maintaining LDL below 100 mg/dL and triglycerides below 150 mg/dL. The management plan includes a low-fat diet and regular exercise. 3. Iron Deficiency Anemia The patient has iron deficiency anemia with a hemoglobin level of 9.1 g/dL and has been started on iron supplements. Repeat blood work is needed to monitor the response to iron therapy. 4. Fatty Liver The patient has a history of fatty liver disease, which requires ongoing monitoring and lifestyle modifications to manage. Discussion Notes During the visit, we discussed the management of diabetes mellitus, emphasizing the importance of achieving an A1c goal of less than 6.5% through diet and exercise. We also reviewed the patient's cholesterol management, noting that the LDL cholesterol is at goal, and reinforced the need for a low-fat diet and regular exercise. The patient was advised to continue iron supplementation for anemia and to have repeat blood work to assess response. A prescription refill for glucose monitor sensors was provided, and the patient was encouraged to maintain regular monitoring of blood glucose levels. Patient Instructions - Follow a healthy diet and exercise regularly to manage diabetes and cholesterol levels. - Continue taking iron supplements as prescribed and schedule repeat blood work. - Use the continuous glucose monitor and refill sensors as needed. - Schedule a follow-up appointment in three months. Orders: Orders AMB Hemoglobin A1c Today Z13.9 - Encounter for screening, unspecified Comprehensive Met. Panel Today D50.9 - Iron deficiency anemia, unspecified Ferritin Today D50.9 - Iron deficiency anemia, unspecified Free T4 (Free Thyroxine) Today D50.9 - Iron deficiency anemia, unspecified Lipid Panel Today D50.9 - Iron deficiency anemia, unspecified, E78.00 - Pure hypercholesterolemia, unspecified MM tomosynthesis screening BI Today Z12.31 - Encounter for screening mammogram for malignant neoplasm of breast Complete Blood Count Auto Diff Today D50.9 - Iron deficiency anemia, unspeci fied Thyroid Stimulating Hormone Today D50.9 - Iron deficiency anemia, unspecified IRON PROFILE Today D50.9 - Iron deficiency anemia, unspecified Vitamin B12 and Folate Today D50.9 - Iron deficiency anemia, unspecified Vitamin D 25-OH Total Today D50.9 - Iron deficiency anemia, unspecified Reticulocyte Count Today D50.9 - Iron deficiency anemia, unspecified Referrals Psychiatry Outpatient Consultation Service R41.630 - Attention and concentration deficit Medications: New metformin 500 mg PO BIDWMEAL 60 tabs 2RF E11.65 - Type 2 diabetes mellitus with hyperglycemia Resumed flash glucose sensor (FreeStyle Aníbal 14 Day Sensor kit) As directed 6 kits 3RF E11.65 - Type 2 diabetes mellitus with hyperglycemia flash glucose sensor (FreeStyle Aníbal 14 Day Sensor kit) As directed 6 kits 3RF E11.65 - Type 2 diabetes mellitus with hyperglycemia
== END 2025-01-02 10:59 | disposition home or self-care (01) ==
PROVIDERS: Visit Provider Internal Medicine
DX: E11.65 Type 2 diabetes mellitus with hyperglycemia (principal); E66.9 Obesity, unspecified; Z68.34 Body mass index [BMI] 34.0-34.9, adult; E78.00 Pure hypercholesterolemia, unspecified; K76.0 Fatty (change of) liver, not elsewhere classified; D50.9 Iron deficiency anemia, unspecified; R41.840 Attention and concentration deficit; Z12.31 Encounter for screening mammogram for malignant neoplasm of breast

== ENCOUNTER → 2025-01-02 10:17 | Outpatient (BNVA) | payer BC, SELFPAY | PROVIDERS: Visit Provider Internal Medicine | DX: E11.65 Type 2 diabetes mellitus with hyperglycemia (principal); E78.00 Pure hypercholesterolemia, unspecified; K76.0 Fatty (change of) liver, not elsewhere classified; D50.9 Iron deficiency anemia, unspecified; R41.840 Attention and concentration deficit | CPT/HCPCS: 83036; 96127 ==